=== PATIENT | female | born 1945 | race Caucasian/White ===

== ENCOUNTER 2017-11-22 12:37 | Emergency (ER) | payer MEDICARE ==
[2017-11-22] MEDS ORDERED: Diazepam TAB(*) 2 MG PO ONE (14:17)
[2017-11-22 14:30] LABS: Urine Appearance Clear; Urine Blood Negative (Negative); Urine Color Straw; Urine Ketones Negative (Negative); Urine Protein Negative (Negative); Urine Specific Gravity 1.004 (1.010-1.030); Urine Urobilinogen Negative (Negative)
--- NOTE | 2017-11-22 14:57 | RAD ---
HISTORY: Dizziness COMPARISONS: March 10, 2015 TECHNIQUE: Multiple contiguous axial CT scans were obtained of the head without intravenous contrast. FINDINGS: HEMORRHAGE/INFARCT: There is no hemorrhage or acute infarct. MASSES/SHIFT: There is no mass or shift. EXTRA-AXIAL SPACES: There are no extra-axial fluid collections. SULCI AND VENTRICLES: The sulci and ventricles are normal in size and position for the patient's stated age. CEREBRUM: There are no focal parenchymal abnormalities. BRAINSTEM: There are no focal parenchymal abnormalities. CEREBELLUM: There are no focal parenchymal abnormalities. VESSELS: Aneurysm clips are noted at the level of the supraclinoid internal carotid arteries bilaterally. PARANASAL SINUSES: The paranasal sinuses are clear. ORBITS: The orbits are unremarkable. BONES AND SOFT TISSUE: There is post surgical change to the skull. OTHER: None IMPRESSION: NO ACUTE INTRACRANIAL PATHOLOGY. POST SURGICAL CHANGE.
--- NOTE | 2017-11-22 15:00 | RAD ---
HISTORY: Dizziness COMPARISONS: November 28, 2015 VIEWS: 1: frontal portable view of the chest at 2:33 PM FINDINGS: LINES AND TUBES: None. CARDIOMEDIASTINAL SILHOUETTE: The cardiomediastinal silhouette is normal for portable technique. PLEURA: The costophrenic angles are sharp. No pleural abnormalities are noted. LUNG PARENCHYMA: The lungs are clear. ABDOMEN: The upper abdomen is clear. There is no subphrenic gas. BONES AND SOFT TISSUES: The patient is status post anterior cervical fusion. IMPRESSION: NO ACTIVE CARDIOPULMONARY DISEASE.
[2017-11-22 15:18] LABS: ABS Basophils 0 10^3/ul (0-0.2); ABS Eosinophils 0.1 10^3/ul (0-0.6); ABS Lymphocytes 1.3 10^3/ul (1.0-4.8); ABS Monocytes 0.4 10^3/ul (0-0.8); ABS Neutrophils 4.1 10^3/ul (1.5-7.7); ABS Nucleated RBC 0 10^3/ul; Hematocrit 41 % (35-47); Hemoglobin 13.6 g/dl (12.0-16.0); Lymphocyte % 21.6 % (25-47); Mean Corpuscular HGB Conc 33 g/dl (31-36); Mean Corpuscular Hemoglobin 29 pg (27-31); Mean Corpuscular Volume 87 fL (80-97); Mean Platelet Volume 9 um3 (7.4-10.4); Nucleated Red Blood Cells % 0; Platelet Count 231 10^3/ul (150-450); Red Blood Count 4.74 10^6/ul (4.0-5.4); Red Cell Distribution Width 14 % (10.5-15); White Blood Count 5.9 10^3/ul (3.5-10.8)
[2017-11-22 15:35] LABS: EGFR Non-African American 96.4 (>60)
[2017-11-22] MEDS ORDERED: Diazepam TAB(*) 5 MG PO ONE (15:46)
[2017-11-22 15:47] LABS: INR 0.97 (0.77-1.02)
[2017-11-22] MEDS ORDERED: Diazepam TAB(*) 5 MG ONE (15:48)
[2017-11-22 16:59] VITALS: BP 130/72
--- NOTE | 2017-11-22 20:56 | ED ---
Fernando Gill Thomas, scribed for Joaquín Tamez on 11/22/17 at 1413 . Dizziness - HPI Summary HPI Summary: The patient is a 71 year old female presenting to the emergency department complaining of dizziness for the last three days. The dizziness is aggravated by head movement. She has been taking meclizine to no relief of her dizziness. She vomited eight times last night. She is nauseous in the emergency department. The patient additionally complains of chronic feelings of congestion in her ear and neck pain. The patient denies chest pain, shortness of breath, loss of consciousness, and abdominal pain. - History Of Current Complaint Chief Complaint: EDDizziness Stated Complaint: N/D/V Time Seen by Provider: 11/22/17 13:56 Hx Obtained From: Patient Onset/Duration: Still Present Timing: Days - 3 Severity Currently: Moderate Aggravating Factor(s): Change In Head Position Alleviating Factor(s): Nothing Associated Signs And Symptoms: Positive: Other: - Dizziness, nausea, vomiting, ear congestion, neck pain; NEGATIVE: chest pain, SOB, abdominal pain, loss of conscioussness. Negative: Fever - Allergies/Home Medications Allergies/Adverse Reactions: Allergies Allergy/AdvReac Type Severity Reaction Status Date / Time Sulfa Drugs Allergy Intermediate Vomiting Verified 10/29/17 13:11 Amoxicillin Allergy Mild Nausea And Verified 10/29/17 13:11 Vomiting Codeine Allergy Mild See Comment Verified 10/29/17 13:11 Home Medications: Home Medications Budesonide CAP(NF) 3 mg PO DAILY 11/22/17 [History Confirmed 11/22/17] Cyclobenzaprine TAB* [Flexeril 10 MG TAB*] 5 - 10 mg PO TID PRN 11/22/17 [ History Confirmed 11/22/17] Desvenlafaxine (NF) [Pristiq (NF)] 50 mg PO DAILY 11/22/17 [History Confirmed ] Lansoprazole CAP (NF) [Prevacid CAP (NF)] 30 mg PO BEDTIME PRN 11/22/17 [ History Confirmed 11/22/17] Meclizine TAB* [Antivert 12.5 TAB*] 50 mg PO BEDTIME PRN 11/22/17 [History Confirmed 11/22/17] Pantoprazole TAB (NF) [Protonix TAB (NF)] 40 mg PO DAILY 11/22/17 [History Confirmed 11/22/17] Prochlorperazine TAB* [Compazine Tab*] 10 mg PO Q6H PRN 11/22/17 [History Confirmed 11/22/17] Rizatriptan ODT (NF) [Maxalt-PRINTED CIRCUIT BOARDS PLASMA ETCHER (NF)] 10 mg PO ONCE PRN 11/22/17 [History Confirmed 11/22/17] SUMAtriptan TAB* [Imitrex TAB*] 50 - 100 mg PO ONCE PRN 11/22/17 [History Confirmed 11/22/17] PMH/Surg Hx/FS Hx/Imm Hx Previously Healthy: No Endocrine/Hematology History: Reports: Hx Systemic Lupus Erythematosus Denies: Hx Bone Marrow Disease, Hx Diabetes, Hx Sickle Cell Disease, Hx Thyroid Disease - RECENTLY DIAGNOSED BENIGN TUMOR, Hx Anemia Cardiovascular History: Reports: Hx Hypercholesterolemia Denies: Hx Angina, Hx Congestive Heart Failure, Hx Coronary Artery Disease, Hx Hypertension, Hx Myocardial Infarction, Hx Pacemaker/ICD, Hx Peripheral Vascular Disease, Hx Rheumatic Fever, Hx Valvular Heart Disease, Other Cardiovascular Problems/Disorders Respiratory History: Denies: Hx Asthma, Hx Chronic Obstructive Pulmonary Disease (COPD), Hx Pulmonary Edema, Hx Pulmonary Embolism, Hx Sleep Apnea, Other Respiratory Problems/Disorders GI History: Reports: 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, LIVER PANELS NOW NORMAL, Hx Gastroesophageal Reflux Disease, Hx Irritable Bowel, Hx Ulcer Denies: Hx Crohn's Disease, Hx Hiatal Hernia, Hx Jaundice, Other GI Disorders History: Denies: Hx Dialysis, Hx Kidney Infection, Hx Kidney Stones, Hx Renal Disease , Other Problems/Disorders Musculoskeletal History: Reports: Hx Arthritis, Hx Rheumatoid Arthritis, Hx Bursitis - HX OF IN SHOULDERS Denies: Hx Osteoporosis, Hx Scoliosis, Hx Tendonitis, Other Musculoskeletal History Sensory History: Reports: Hx Cataracts Denies: Hx Contacts or Glasses, Hx Glaucoma, Hx Hearing Aid Opthamlomology History: Reports: Hx Cataracts Denies: Hx Contacts or Glasses, Hx Glaucoma Neurological History: Reports: Hx Headaches, Hx Migraine, Other Neuro Impairments/Disorders - PAIN CLINIC PT. Denies: Hx Nerve Disease, Hx Seizures Psychiatric History: Reports: Hx Depression Denies: Hx Anxiety, Hx Panic Disorder - Cancer History Hx Chemotherapy: No Hx Radiation Therapy: No - Surgical History Surgery Procedure, Year, and Place: Lumbar fusion done 05/22/16 at [facility] [place] with Dr. De La Rosa. Bilateral Shoulder Surgery at [facility] [place] with Dr. Harmon. Hx Anesthesia Reactions: No Infectious Disease History: No Infectious Disease History: Reports: Hx Hepatitis - LUPOID, History Other Infectious Disease - AFTER ANEURYSM SURGERY, UNSURE OF TYPE Denies: Traveled Outside the [place] in Last 30 Days - Family History Known Family History: Positive: Other - Patient denies relevant FHx - Social History Alcohol Use: None Substance Use Type: Reports: None Substance Use Comment - Amount & Last Used: Medical Marijuana Smoking Status (MU): Former Smoker Type: Cigarettes Amount Used/How Often: 1 -2 PPD X 54 YEARS Have You Smoked in the Last Year: No Review of Systems Negative: Fever Positive: Other - Ear congestion Negative: Chest Pain Negative: Shortness Of Breath Positive: Vomiting, Nausea. Negative: Abdominal Pain Positive: Other - Neck pain Neurological: Other - Dizziness; NEGATIVE: loss of consciousness All Other Systems Reviewed And Are Negative: Yes Physical Exam - Summary Physical Exam Summary: Appearance: Well appearing, no pain distress Skin: warm, dry, reflects adequate perfusion Head/face: normal Eyes: EOMI, ITZEL ENT: There are dull TMs bilaterally. Neck: supple, non-tender Respiratory: CTA, breath sounds present Cardiovascular: RRR, pulses symmetrical Abdomen: non-tender, soft Bowel: present Musculoskeletal: normal, strength/ROM intact Neuro: normal, sensory motor intact, A&Ox3 Triage Information Reviewed: Yes Vital Signs On Initial Exam: Initial Vitals Temp Pulse Resp BP Pulse Ox 98.2 F 100 16 132/85 100 11/22/17 12:41 11/22/17 12:41 11/22/17 12:41 11/22/17 12:41 11/22/17 12:41 Vital Signs Reviewed: Yes Diagnostics - Vital Signs Vital Signs Temp Pulse Resp BP Pulse Ox 11/22/17 12:41 98.2 F 100 16 132/85 100 - Laboratory Lab Results: Lab Results 11/22/17 11/22/17 11/22/17 Range/Units 14:17 15:05 15:05 WBC 5.9 (3.5-10.8) 10^3/ul RBC 4.74 (4.0-5.4) 10^6/ul Hgb 13.6 (12.0-16.0) g/dl Hct 41 (35-47) % MCV 87 (80-97) fL MCH 29 (27-31) pg MCHC 33 (31-36) g/dl RDW 14 (10.5-15) % Plt Count 231 (150-450) 10^3/ul MPV 9 (7.4-10.4) um3 Neut % (Auto) 69.3 (38-83) % Lymph % (Auto) 21.6 L (25-47) % [place] % (Auto) 7.4 (1-9) % Eos % (Auto) 1.0 (0-6) % Baso % (Auto) 0.7 (0-2) % Absolute Neuts (auto) 4.1 (1.5-7.7) 10^3/ul Absolute Lymphs (auto) 1.3 (1.0-4.8) 10^3/ul Absolute Monos (auto) 0.4 (0-0.8) 10^3/ul Absolute Eos (auto) 0.1 (0-0.6) 10^3/ul Absolute Basos (auto) 0 (0-0.2) 10^3/ul Absolute Nucleated RBC 0 10^3/ul Nucleated RBC % 0 INR (Anticoag Therapy) 0.97 (0.77-1.02) APTT 32.5 (26.0-36.3) seconds Sodium (133-145) mmol/L Potassium (3.5-5.0) mmol/L Chloride (101-111) mmol/L Carbon Dioxide (22-32) mmol/L Anion Gap (2-11) mmol/L BUN (6-24) mg/dL Creatinine (0.51-0.95) mg/dL Est GFR ( Amer) (>60) Est GFR (Non-Af Amer) (>60) BUN/Creatinine Ratio (8-20) Glucose (70-100) mg/dL Calcium (8.6-10.3) mg/dL Magnesium (1.9-2.7) mg/dL Total Bilirubin (0.2-1.0) mg/dL AST (13-39) U/L ALT (7-52) U/L Alkaline Phosphatase (34-104) U/L Troponin I (<0.04) ng/mL Total Protein (6.4-8.9) g/dL Albumin (3.2-5.2) g/dL Globulin (2-4) g/dL Albumin/Globulin Ratio (1-3) Urine Color Straw Urine Appearance Clear Urine pH 7.0 (5-9) Ur Specific [place] 1.004 L (1.010-1.030) Urine Protein Negative (Negative) Urine Ketones Negative (Negative) Urine Blood Negative (Negative) Urine Nitrate Negative (Negative) Urine Bilirubin Negative (Negative) Urine Urobilinogen Negative (Negative) Ur Leukocyte Esterase Negative (Negative) Urine Glucose Negative (Negative) 11/22/17 Range/Units 15:05 WBC (3.5-10.8) 10^3/ul RBC (4.0-5.4) 10^6/ul Hgb (12.0-16.0) g/dl Hct (35-47) % MCV (80-97) fL MCH (27-31) pg MCHC (31-36) g/dl RDW (10.5-15) % Plt Count (150-450) 10^3/ul MPV (7.4-10.4) um3 Neut % (Auto) (38-83) % Lymph % (Auto) (25-47) % [place] % (Auto) (1-9) % Eos % (Auto) (0-6) % Baso % (Auto) (0-2) % Absolute Neuts (auto) (1.5-7.7) 10^3/ul Absolute Lymphs (auto) (1.0-4.8) 10^3/ul Absolute Monos (auto) (0-0.8) 10^3/ul Absolute Eos (auto) (0-0.6) 10^3/ul Absolute Basos (auto) (0-0.2) 10^3/ul Absolute Nucleated RBC 10^3/ul Nucleated RBC % INR (Anticoag Therapy) (0.77-1.02) APTT (26.0-36.3) seconds Sodium 137 (133-145) mmol/L Potassium 3.6 (3.5-5.0) mmol/L Chloride 105 (101-111) mmol/L Carbon Dioxide 26 (22-32) mmol/L Anion Gap 6 (2-11) mmol/L BUN 13 (6-24) mg/dL Creatinine 0.61 (0.51-0.95) mg/dL Est GFR ( Amer) 124.0 (>60) Est GFR (Non-Af Amer) 96.4 (>60) BUN/Creatinine Ratio 21.3 H (8-20) Glucose 113 H (70-100) mg/dL Calcium 9.2 (8.6-10.3) mg/dL Magnesium 1.8 L (1.9-2.7) mg/dL Total Bilirubin 0.40 (0.2-1.0) mg/dL AST 16 (13-39) U/L ALT 17 (7-52) U/L Alkaline Phosphatase 60 (34-104) U/L Troponin I 0.00 (<0.04) ng/mL Total Protein 6.3 L (6.4-8.9) g/dL Albumin 3.9 (3.2-5.2) g/dL Globulin 2.4 (2-4) g/dL Albumin/Globulin Ratio 1.6 (1-3) Urine Color Urine Appearance Urine pH (5-9) Ur Specific [place] (1.010-1.030) Urine Protein (Negative) Urine Ketones (Negative) Urine Blood (Negative) Urine Nitrate (Negative) Urine Bilirubin (Negative) Urine Urobilinogen (Negative) Ur Leukocyte Esterase (Negative) Urine Glucose (Negative) Result Diagrams: 11/22/17 15:05 11/22/17 15:05 Lab Statement: Any lab studies that have been ordered have been reviewed, and results considered in the medical decision making process. - Radiology CXR Xray Interpretation: No Acute Changes - NO ACTIVE CARDIOPULMONARY DISEASE. Dr. Tamez has reviewed this report. Radiology Interpretation Completed By: Radiologist - CT Brain CT Interpretation: No Acute Changes - NO ACUTE INTRACRANIAL PATHOLOGY. POST SURGICAL CHANGE. Dr. Tamez has reviewed this report. CT Interpretation Completed By: Radiologist - EKG 12:46 Cardiac Rate: NL EKG Rhythm: Sinus Rhythm - 91 BPM EKG Interpretation: No acute changes Dizzy Course/Dx - Course Assessment/Plan: The patient is a 71 year old female presenting to the emergency department complaining of dizziness for the last three days. In the ED course the patient was given Diazepam. Bloodwork and urinalysis were obtained. EKG is sinus rhythm with no acute changes. CT Brain and CXR were obtained. The patient is diagnosed with dizziness, vertigo, and nausea. The patient is instructed to follow up with [facility]. The patient is prescribed Zofran. - Diagnoses Differential Diagnosis/HQI/PQRI: Anxiety, Benign Paroxysmal Positional Vertigo, CVA, Dysrhythmia, Labyrinthitis, Meniere's Disease, Transient Ischemic Attack, Vasovagal Reaction Provider Diagnoses: Dizziness, Vertigo, Nausea Discharge - Discharge Plan Condition: Stable Disposition: HOME Prescriptions: Ondansetron ODT TAB* [Zofran 4 MG Odt TAB*] 4 mg PO Q8H PRN #21 tab.odt MDD 3 PRN Reason: Nausea Patient Education Materials: Vertigo (ED), Acute Nausea and Vomiting (ED), Dizziness (ED) Referrals: Theron Sesay MD [Medical Doctor] - 3 Days Additional Instructions: Follow up with Dr. Sesay, ENT, in three days. Return to the emergency department for any new or worsening symptoms. The documentation as recorded by the Fernando roberts Thomas accurately reflects the service I personally performed and the decisions made by Dashawn bob Emmanuel.
== END 2017-11-22 17:01 | disposition home or self-care (01) ==
LOC: ED 12:37
DX: R42 Dizziness and giddiness (principal); R11.2 Nausea with vomiting, unspecified; M54.2 Cervicalgia; Z87.891 Personal history of nicotine dependence
CPT/HCPCS: 36415; 70450; 71045; 80053; 81003; 83735; 84484; 85025; 85610; 85730; 93005; 99282; A9270-GY

== ENCOUNTER 2019-11-12 05:25 | Inpatient (IN) | payer MEDICARE ==
[~2019-11-12 05:25] MED LIST: Buffered Lidocaine 1% SYRIN* 1 ML/SYRINGE INTRADERM ONE; NS 0.9% IVPB SCH; VANCOMYCIN IVPB SCH
--- OUTSIDE RECORDS SUMMARY | 2019-11-12 05:28 | XMS REPORT | Continuity of Care Document ---
:1945 External Reference #:[id number] Author Name Padmini Gomez Problems Active Problems Provider Date Neck pain Ted De La Rosa M.D. Onset: 11/18/2014 Localized, primary osteoarthritis of the Dangelo Harmon M.D. Onset: 05/12/2015 shoulder region Hypertrophic osteoarthropathy Dangelo Harmon M.D. Onset: 08/16/2015 Spinal stenosis of lumbar region Ted De La Rosa M.D. Onset: 11/09/2015 Arthralgia of the pelvic region and thigh Ted De La Rosa M.D. Onset: 2015 Convalescence after surgery Ted De La Rosa M.D. Onset: 12/14/2015 Acquired spondylolisthesis Ted De La Rosa M.D. Onset: 05/09/2016 Cervical spondylosis Kirstie Palma MD Onset: 12/10/2017 Spinal stenosis in cervical region Kirstie Palma MD Onset: 12/10/2017 Lumbosacral spondylosis without myelopathy Kirstie Palma MD Onset: Low back pain Kirstie Palma MD Onset: 01/13/2018 Social History Type Date Description Comments Sex Unknown Tobacco Use Start: Unknown End: Former Cigarette Smoker quit smoking in Unknown 2008 Smoking Status Reviewed: 10/24/19 Former Cigarette Smoker quit smoking in 2008 ETOH Use Denies alcohol use Tobacco Use Start: Unknown End: Patient is a former quit age 63 Unknown smoker Recreational Drug Use Denies Drug Use Exercise Type/Frequency Does not exercise Allergies, Adverse Reactions, Alerts Active Allergies Reaction Severity Comments Date Sulfa Antibiotics 01/20/2014 Codeine 01/22/2014 Amoxicillin 01/22/2014 Medications Active Medications SIG Qnty Indications Ordering Date Provider MJ Collar At all times M47.26 Vassilios 09/09/2019 after surgery Dimopoulos, MD Meclizine HCL 1 by mouth 90tabs Linda Wang, 25mg Tablets daily as needed Bupropion HCL SR 1 by mouth Linda Wang, 150mg twice a day MD Tablets ER 12HR Premarin 1 tab orally 6 Linda Wang, 1.25mg Tablets days per week Chlorzoxazone 1 1/2 tabs by 45tabs Linda Wang, 500mg Tablets mouth three MD times a day spasm Trazodone HCL 2-4 tablets by 30tabs Linda Wang, 100mg Tablets mouth every MD night at bedtime Imitrex 1/2-1 tablet 12tabs Linda Wang, 100mg Tablets every 2 hours MD as needed mdd 2 Flexeril 1/2-1tablet by 60tabs Linda Wang, 10mg Tablets mouth three MD times a day as needed 1 by mouth 90tabs Linda Wang, 16.2mg Tablets three times a MD day as needed Prochlorperazine Maleate one tab by Linda Wang, 10mg mouth every 6 MD Tablets hours as needed Multivitamins 1 capsule daily 30caps Linda Wang, Capsules Digestive Enzymes 1 by mouth Linda Wang, Capsules before meals Vitamin C 1 by mouth Linda Wang, 1000mg Tablets every day Fioricet 1-2 tabs by 30caps Linda Wang, 50-300-40mg Capsules mouth q4-6hr as MD needed Pantoprazole Sodium 1 by mouth Unknown 20mg every day Tablets DR Odellstenrico 1 tab by mouth Unknown 100mg Tablets ER 24HR in the morning Medications Administered in Office Medication SIG Qnty Indications Ordering Provider Date Triamcinolone (Kenalog) Victorina Lua MD 12/30/2015 Injection Depomedrol 80MG Dangelo Harmon M.D. 05/12/2015 Injection Immunizations Description No Information Available Vital Signs Date Vital Result Comment 10/24/2019 1:23pm Height 61 inches 5'1" Weight 105.00 lb Heart Rate 80 /min BP Systolic Sitting 140 mmHg BP Diastolic Sitting 86 mmHg BMI (Body Mass Index) 19.8 kg/m2 09/09/2019 1:14pm Height 61 inches 5'1" Weight 110.00 lb Heart Rate 80 /min BP Systolic Sitting 112 mmHg BP Diastolic Sitting 82 mmHg Pain Level 9 Shoulders and lower back BMI (Body Mass Index) 20.8 kg/m2 Results Test Acquired Date Facility Test Result H/L Range Note Urinalysis Profile 10/21/2019 [facility] Urine Color Yellow [address] [place] [address] [phone] Urine Appearance Cloudy Urine Specific [place] 1.027 Normal 1.010-1.030 Urine pH 5.0 Normal 5-9 Urine Urobilinogen Negative Negative Urine Ketones Negative Negative Urine Protein Negative Negative Urine Leukocytes Negative Negative Urine Blood Negative Negative Urine Nitrite Negative Negative Urine Bilirubin Negative Negative Urine Glucose Negative Negative CBC Auto 10/21/2019 [facility] White Blood 9.4 10^3/uL Normal 3.5-10.[address] [place] [address] [phone] Red Blood Count 4.60 10^6/uL Normal 3.70-4.87 Hemoglobin 13.5 g/dL Normal 12.0-16.0 Hematocrit 40 % Normal 35-47 Mean Corpuscular Volume 88 fL Normal 80-97 Mean Corpuscular Hemoglobin 30 pg Normal 27-31 Mean Corpuscular HGB Conc 34 g/dL Normal 31-36 Red Cell Distribution Width 14 % Normal 10-15 Platelet Count 291 10^3/uL Normal 150-450 Mean Platelet Volume 9.3 fL Normal 7.4-10.4 Abs Neutrophils 6.5 10^3/uL Normal 1.5-7.7 Abs Lymphocytes 2.0 10^3/uL Normal 1.0-4.8 Abs Monocytes 0.7 10^3/uL Normal 0-0.8 Abs Eosinophils 0.1 10^3/uL Normal 0-0.6 Abs Basophils 0.0 10^3/uL Normal 0-0.2 Abs Nucleated RBC 0.0 10^3/uL Granulocyte % 69.6 % Lymphocyte % 21.8 % Monocyte % 7.2 % Eosinophil % 1.0 % Basophil % 0.4 % Nucleated Red Blood Cells % 0.0 Inr/Protime 10/21/2019 [facility] Inr 1.03 Normal 0.82-1.[address] [place] [address] [phone] Laboratory test 10/21/2019 [facility] Partial 33.8 Normal 26.0 -38.[address] [place] [address] Time PTT [phone] Basic Metabolic 10/21/2019 [facility] Sodium 136 mmol/L Normal 135-[address] [place] [address] [phone] Potassium 3.8 mmol/L Normal 3.5-5.0 Chloride 104 mmol/L Normal 101-111 Co2 Carbon Dioxide 21 mmol/L Low 22-32 Anion Gap 11 mmol/L Normal 2-11 Glucose 102 mg/dL High 70-100 Blood Urea Nitrogen 22 mg/dL Normal 6-24 Creatinine 0.92 mg/dL Normal 0.51-0.95 BUN/Creatinine Ratio 23.9 High 8-20 Calcium 9.1 mg/dL Normal 8.6-10.3 Egfr Non- 59.7 >60 Egfr 72.2 >60 2 Type & Screen 10/21/2019 [facility] Patient Blood Type A Positive [address] [place] [address] [phone] Antibody Screen NEGATIVE 1 Standard intensity warfarin therapeutic range: 2.0-3.0 High intensity warfarin therapeutic range: 2.5-3.5 2 Because ethnic data is not always readily available, this report includes an eGFR for both -Americans and non- Americans. The National Kidney Disease Education Program (NKDEP) does not endorse the use of the MDRD equation for patients that are not between the ages of 18 and 70, are , have extremes of body size, muscle mass, or nutritional status, or are non- or non-. According to the National Kidney Foundation, irrespective of diagnosis, the stage of the disease is based on the level of kidney function: Stage Description GFR(mL/min/1.73 m(2)) 1 Kidney damage with normal or decreased GFR 90 2 Kidney damage with mild decrease in GFR 60-89 3 Moderate decrease in GFR 30-59 4 Severe decrease in GFR 15-29 5 Kidney failure <15 (or dialysis) Procedures Description No Information Available Medical Devices Description No Information Available Encounters Type Date Location Provider Dx Diagnosis [facility] MD cervical region M47.12 Other spondylosis with myelopathy, cervical region M54.12 Radiculopathy, cervical region 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, cervicothoracic region Assessments Date Code Description Provider 10/24/2019 M48.02 Spinal stenosis, cervical region Kirstie Palma MD 10/24/2019 M47.12 Other spondylosis with myelopathy, Kirstie Palma MD cervical region 10/24/2019 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, cervicothoracic Kirstie Palma MD region 09/18/2019 M48.02 Spinal stenosis, cervical region Kirstie Palma MD 09/18/2019 M47.12 Other spondylosis with myelopathy, Kirstie Palma MD cervical region 09/18/2019 M54.12 Radiculopathy, cervical region Kirstie Palma MD 09/18/2019 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, cervicothoracic Kirstie Palma MD region 09/09/2019 M48.02 Spinal stenosis, cervical region Kirstie Palma MD 09/09/2019 M47.12 Other spondylosis with myelopathy, Kirstie Palma MD cervical region 09/09/2019 M54.12 Radiculopathy, cervical region Kirstie Palma MD 09/09/2019 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, cervicothoracic Kirstie Palma MD region Plan of Treatment Future Appointment(s):12/14/2019 2:00 pm - Kirstie Palma MD at [facility]11/20/2019 11:30 am - Kirstie Palma MD at [facility]11/12/2019 7:30 am - Kirstie Palma MD at [facility]10/24/2019 - Kirstie Palma MDM48.02 Spinal stenosis, cervical ropojiR27.12 Other spondylosis with myelopathy, cervical regionFollow up:RV one week, one month, three months post op.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
[2019-11-12] MEDS ORDERED: Lactated Ringers 1000 ML Bag* 1,000 ML IV SCH ×2 (06:00→19:00)
[2019-11-12] MEDS ORDERED: Dexamethasone IV* 4 MG/ML 1 ML (4 MG) IV SLOW PU ONE (06:00)
[2019-11-12] MEDS ORDERED: Dexamethasone IV* 4 MG/ML 1 ML (4 MG) ONE ×3 (06:44→16:21)
[2019-11-12] MEDS ORDERED: Buffered Lidocaine 1% SYRIN* 1 ML/SYRINGE INTRADERM ONE (06:44)
[2019-11-12] MEDS ORDERED: Bupivacaine 0.25% EPI 200,000* 30 ML SDV ONE (06:57)
[2019-11-12] MEDS ORDERED: Bacitracin INJECTION* 50,000 UNITS ONE ×3 (06:57→15:39)
[2019-11-12] MEDS ORDERED: Rocuronium* 10 MG/ML VIAL ONE (07:17)
[2019-11-12] MEDS ORDERED: Remifentanil* 2 MG VIAL ONE ×4 (07:17→13:01)
[2019-11-12] MEDS ORDERED: Propofol* 10 MG/ML 20 ML BTL ONE ×3 (07:17→14:20)
[2019-11-12] MEDS ORDERED: Midazolam* 1 MG/ML 5 ML VIAL (5 MG) ONE (07:43)
[2019-11-12] MEDS ORDERED: Phenylephrine 10 MG/ML VIAL* 1 ML VIAL ONE ×4 (08:01→13:05)
[2019-11-12] MEDS ORDERED: Propofol* 500 MG/50 ML BTL ONE (08:58)
[2019-11-12] MEDS ORDERED: Ondansetron INJ* 2 MG/ML VIAL ONE ×2 (14:38→16:21)
[2019-11-12] MEDS ORDERED: HYDROmorphone INJ1* 1 MG/ML SYRINGE ONE ×5 (15:51→19:14)
[2019-11-12] MEDS ORDERED: Naloxone* 0.4 MG/ML 1 ML VIAL IV PRN (16:19)
[2019-11-12] MEDS ORDERED: DiMENhydriNATE IV* 50 MG/ML VIAL IV PUSH PRN (16:19)
[2019-11-12] MEDS ORDERED: Metoclopramide IV* 5 MG/ML 2 ML VIAL ONE (16:21)
[2019-11-12] MEDS ORDERED: Ketorolac INJ* 30 MG/ML 1 ML VIAL ONE (16:21)
[2019-11-12] MEDS ORDERED: Acetaminophen IV 1GM/100ML * 100 ML ONE (16:21)
[2019-11-12] MEDS: HYDROmorphone INJ1* 1 MG/ML SYRINGE IV PRN ×3 (17:58→20:46)
[2019-11-12] MEDS ORDERED: oxyCODONE TAB* 5 MG TAB ONE ×2 (18:02→18:27)
[2019-11-12] MEDS ORDERED: DiMENhydriNATE IV* 50 MG/ML VIAL ONE (18:02)
[2019-11-12] MEDS: oxyCODONE TAB* 5 MG TAB PO PRN ×2 (18:10→18:31)
[2019-11-12] MEDS ORDERED: Acetaminophen TAB* 325 MG PO PRN (18:24)
[2019-11-12] MEDS ORDERED: Magnesium Hydroxide LIQ* 30 ML UDC PO PRN (18:24)
[2019-11-12] MEDS ORDERED: Ondansetron INJ* 2 MG/ML VIAL IV PRN (18:24)
[2019-11-12] MEDS ORDERED: HYDROcodone/ACETAMIN 5-325 MG* 1 TAB PO PRN ×2 (18:24)
[2019-11-12] MEDS ORDERED: SUMAtriptan TAB* 50 MG PO PRN (19:09)
[2019-11-12] MEDS ORDERED: Cyclobenzaprine TAB* 10 MG PO PRN (19:09)
[2019-11-12] MEDS ORDERED: Scopolamine 1.5 mg* PATCH ONE (19:15)
[2019-11-12] MEDS ORDERED: tiZANidine TAB* 2 MG PO ONE (19:16)
[2019-11-12] MEDS ORDERED: Gabapentin CAP(*) 300 MG PO ONE (19:17)
[2019-11-12] MEDS ORDERED: Gabapentin CAP(*) 300 MG ONE (19:22)
[2019-11-12] MEDS ORDERED: Dicyclomine CAP* 10 MG PO PRN (19:24)
--- NOTE | 2019-11-12 20:53 | CONS ---
CC: Dr. Linda Manriquez; Dr. Kirstie Palma * CONSULTATION REPORT: DATE OF CONSULT: 11/12/19 PRIMARY CARE PROVIDER: Dr. Linda Manriquez. ATTENDING PHYSICIAN: Brooke Wilkes MD (dictated by KORIN Bergman). REQUESTING PHYSICIAN IN CONSULTATION: Dr. Kirstie Palma. REASON FOR CONSULT: Co-medical management. HISTORY OF PRESENT ILLNESS: Ms. Gonsalez is a 73-year-old female with a past medical history of migraine, chronic pain, and cervical degenerative disk disease, who presented to [facility] today for an elective C2-T3 fusion. Currently, she complains of pain at 9/10 in the posterior neck. She also complains of bilateral shoulder/upper arm pain. She has difficulty answering questions due to her discomfort, but her review of systems is benign other than neck and shoulder/upper arm pain. The patient has a history of chronic pain and follows with Dr. Oakes for this. She is seen postoperatively in the PACU and complains of 9/10 pain. PAST MEDICAL HISTORY: 1. Migraine. 2. Irritable bowel syndrome. 3. GERD. 4. Chronic pain. 5. Depression. 6. History of SLE. PAST SURGICAL HISTORY: 1. Cervical and lumbar spine fusion. 2. x2. 3. Partial gastrectomy. 4. Craniotomy with aneurysm clipping x2. HOME MEDICATIONS: 1. Ascorbic acid 1000 mg p.o. daily. 2. Bentyl 1 cap p.o. q.i.d. p.r.n. 3. Budesonide 9 mg p.o. b.i.d. 4. Bupropion tab 150 mg p.o. b.i.d. 5. Fioricet 2 tabs p.o. q.3 hours p.r.n. 6. Chlorzoxazone 750 mg p.o. t.i.d. 7. Cyclobenzaprine 5 to 10 mg p.o. t.i.d. p.r.n. 8. Desvenlafaxine 150 mg p.o. daily. 9. Ergocalciferol 50 mcg twice a month. 10. Premarin 1.25 mg p.o. b.i.d. 11. Meclizine 50 mg p.o. at bedtime p.r.n. 12. Melatonin 20 mg p.o. at bedtime. 13. Multivitamin 1 tab p.o. daily. 14. Pantoprazole 40 mg p.o. daily at bedtime. 15. 1 tab p.o. daily p.r.n. 16. Prochlorperazine 10 mg p.o. q.6 hours p.r.n. 17. Rizatriptan 10 mg p.o. daily. 18. Sumatriptan 50 to 100 mg p.o. once p.r.n. 19. Trazodone 200 to 400 mg p.o. at bedtime. ALLERGIES: AMOXICILLIN, CODEINE, SULFA FAMILY HISTORY: The patient is unable to give family history, therefore this was obtained from chart. Mother at the age of 83 from uterine cancer, father at the age of 89 from Alzheimer disease. Brother has prostate cancer. Family history of CVA and diabetes. SOCIAL HISTORY: The patient denies current use of tobacco. She quit approximately 10 years ago. Prior to that, she smoked for 40 years 1 pack per day. She does not use alcohol. She is retired. She lives home alone. She has 2 children. In the event that she is unable to make her own medical decision, she has appointed her ex- Reese Gonsalez to be her surrogate decision maker. REVIEW OF SYSTEMS: A 14-point review of systems has been performed and all the pertinent positives and negative are in the HPI, other systems are negative. PHYSICAL EXAM: General: Ms. Gonsalez is a well-developed, well-nourished, thin , older white woman who is sitting up in her bed in the PACU. She appears to be in a fair amount of pain. She attempts to answer questions but is interrupted by pain relatively frequently. HEENT: PERRL. EOMI. Nonicteric sclerae. The patient has facial edema, most prominent periorbitally. Hearing is grossly intact. Oral mucous membranes are moist. There are no lesions. The pharynx is clear. The tongue is at midline. Neck: The patient has a Kane collar in place. There is clean, dry, intact dressing to the posterior neck. There is a DALY drain in place with thin blood tinged serosanguineous fluid in the bulb. Cardiovascular: Tachycardic with S1, S2 present without murmurs, rubs, clicks, or gallops. There is no JVD or peripheral edema. Pulmonary: Symmetrical chest expansion without use of accessory muscles. Clear to auscultation bilaterally anteriorly without rhonchi, wheezes, or rales. Abdomen: Bowel sounds in all quadrants, soft, nontender to palpation. Musculoskeletal: Full range of motion without pain or deformities of her movement. Neuro: The patient is awake. She is alert and oriented x3. Cranial nerves II through XII appear to be grossly intact. ASSESSMENT AND PLAN: Ms. Gonsalez is a 73-year-old female with past medical history of migraine, chronic pain, who presented to [facility] today for an elective C2 to T3 fusion and will be admitted for: 1. C2-T3 fusion. Management per Neurosurgery. Pain management per Neurosurgery. The patient will have repeat cervical spine x-ray in the morning. Continue Kane collar and DALY drain. TEDs and SCDs for DVT management. 2. Irritable bowel syndrome. The patient may continue her Bentyl. 3. Depression. Continue bupropion and Pristiq. 4. Chronic pain. We will continue cyclobenzaprine. Further pain management per Neurosurgery. If pain management becomes a concern, the patient may need consults with Pain Management, with whom she follows outpatient. 5. History of migraines. Sumatriptan as needed p.r.n. headache. 6. Code status: DNR/DNI. 7. DVT prophylaxis: Per Neurosurgery. TEDs and SCDs. TIME SPENT: Approximately 35 minutes were spent on this consultation, greater than half that time was spent [id number] with the patient. This case was discussed with my attending Dr. Wilkes who is in agreement with the plan of care. KORIN WILEY [id number]/[facility] #: [id number] INDU
[2019-11-12] MEDS ORDERED: Morphine PCA 5 MG/ML * Titrate per Protocol PCA SCH (21:00)
[2019-11-12] MEDS ORDERED: Budesonide CAP(NF) 3 MG PO SCH (21:00)
[2019-11-12] MEDS: buPROPion SR TAB.SR* 150 MG PO SCH (23:17)
[2019-11-12] MEDS: traZODone TAB* 100 MG PO SCH (23:17)
[2019-11-12] MEDS: Pantoprazole TAB * 40 MG TAB PO SCH (23:17)
[2019-11-12] MEDS ORDERED: Diazepam INJ CARPUJECT* 5 MG/ML IV ONE (23:34)
[2019-11-13] MEDS: Diazepam INJ CARPUJECT* 5 MG/ML IV ONE ×2 (00:09→04:16)
--- NOTE | 2019-11-13 00:24 | OP ---
DATE OF OPERATION: 11/12/19 - ROOM #333 DATE OF : 43 SURGEON: Kirstie Palma MD DIGITAL RECRUITER: KADE Martini. The case was done with the assistance of an WHISTLE PUNK because of the complexity of the case. ANESTHESIA: General. PRE-OP DIAGNOSES: 1. Degenerative disk disease. 2. Cervical spondylotic myelopathy. 3. C7-T1 spondylolisthesis with cervical thoracic subluxation. POST-OP DIAGNOSES: 1. Degenerative disk disease. 2. Cervical spondylotic myelopathy. 3. C7-T1 spondylolisthesis with cervical thoracic subluxation. OPERATIVE PROCEDURE: The patient underwent posterior cervical decompression and fusion with C2 to T3 arthrodesis with locally harvested bone graft and DBX, laminectomies C2-C7 with bilateral C4-5, 5-6, 6-7, and C7-T1 foraminotomies with C2 pedicle screws, left C5 pedicle screw, bilateral C7, T1, T2, and T3 pedicle screws, and lateral mass screws C3 bilaterally, right C4, right C5 with intraoperative navigation and intraoperative electrophysiological monitoring. ESTIMATED BLOOD LOSS: 150 cc. COMPLICATIONS: None. SUMMARY: The patient is a very pleasant 73-year-old female with a history of previous laminectomy and lumbar decompression and fusion by Dr. De La Rosa. The patient presented with severe neck pain and upper extremity radiculopathy with signs of cervical spondylotic myelopathy with imaging finding consistent with progressive C7-T1 spondylolisthesis and multilevel stenosis and neural foraminal stenosis. After failing conservative treatment modalities, she was offered the option of surgical intervention in the form of posterior cervical decompression and fusion. After explaining the expectations, limitations, and possible complications of the procedure to the patient and her ex- with complications including but not limited to bleeding, infection, risk of injury to adjacent structures, coma, paralysis, , need for additional procedure, anesthesia risk, stroke, blindness, cancer, instability, hardware failure, adjacent level disease, pseudoarthrosis, spinal fluid leak, loss of bladder or bowel control, spinal cord injury, paralysis, need for prolonged ICU stay, prolonged hospitalization, prolonged rehabilitation, need for tracheostomy or gastrostomy, proximal or distal junctional kyphosis/failure and need for additional procedures, anesthesia risks, the patient was agreeable to proceed with surgery and informed consent was obtained. The patient understood that her condition may not improve and in fact it may get worse after surgery and that she may require additional procedures in the future. The patient also understood that the purpose of the procedure is to stabilize her condition and her myelopathy and pain may not improve. She also understood that the operative plan may be modified according to the intraoperative findings and conditions and the case may be abandoned or done in more than one stages. The patient understood that she may require prolonged hospitalization, prolonged rehabilitation, and prolonged ICU stay. DESCRIPTION OF PROCEDURE: The patient was brought to the operating room and was placed under general anesthesia by the anesthesia team. She was carefully positioned prone on the [place] table and all bony prominences were meticulously padded. Her skin was prepped and draped in the standard fashion. After appropriate surgical pause and patient identification, a midline incision was marked over the spinous process of C1 to T3. After infiltrating the skin with local anesthetic, incision was made with a N 10 surgical blade and advanced with Bovie cautery. Self-retaining retractors were introduced into the field. The dorsal fascia was divided in both sides of the midline with Bovie cautery and the paraspinal musculature was elevated with periosteal elevators and Bovie cautery in a subperiosteal fashion. The spinous process, lamina as well as lateral masses of C3 through C7 were identified and exposed as well as the lamina and spinous process of T1, T2, and T3 as well as spinous process and the lamina and pars of C2. Self-retaining retractors were introduced further into the field. Then attention was brought to insert the lateral mass screws. High-speed drill was used to perform partal facetectomies and removal of osteophytes, and after the entry points were identified, high-speed drill was used to perform a pilot control operator helper hole in each level. Handheld drill was then used to create the trajectory of the lateral mass screws and after checking the integrity of the path with Kimble probe, Medtronic Infinity 3.5 x 12 mm screws were inserted at C3, C4, C5, and C6 bilaterally. Of note, the patient's bone was found to be extremely soft and unfortunately the lateral mass of the left C4 and C5 as well as bilateral C6 were not able to accommodate bilateral mass screws and showed signs of possible fractures. Extensive foraminotomies at C4 -5, C5-6, C6-7level were performed. The navigation star was then attached on the spinous process of T3 and intraoperative O-arm imaging was obtained. This confirmed the excellent placement of the lateral mass screws at C3, the right C4 as well as left C6. The patient's data was transferred to navigation platform and under stereotactic navigation, the pedicles of T1, T2, and T3 were cannulated with use of high-speed drill and hand-held drill and pedicle screws were inserted. Infinity 3.5 x 22 mm screws from Medtronic were used for the T1 level, 3.5 x 24 for the T2 level, and 3.5 x 26 for the T3 level. Similarly, entry points for the C2 pedicle screws were marked with the assistance of intraoperative navigation and the pedicles were cannulated with use of high- speed drill and hand- held drill. After confirmation of bony girard in all trajectories, 3.5 x 22 mm screw was inserted on the right C2 pedicle and 3.5 x 16 mm screw for the left C2 pedicle. Due to the medial course of the vertebral artery, a shorter pedicle screw was elected to be placed. It was elected to insert left C5 pedicle screw in order to reinforce the construct as the lateral masses were found to have suboptimal purchase and it was deemed that the bone quality was relatively poor. Intraoperative imaging confirmed excellent placement of all hardware. The right T1 pedicle screw was gently redirected as intraoperative O-arm imaging showed a slight medial position without breach of the spinal canal. Of note, during the process of the right T1 screw redirection, Kimble probe confirmed the presence bony wall without breach in all aspects of the pedicle screw trajectory. Due to the poor quality of the bone, the left C6 screw was removed and it was elected to place bilateral C7 pedicle screws under stereotactic navigation. 3.5 x 22 mm screws were inserted while C7-T1 bilateral foraminotomies were also completed. Intraoperative O-arm imaging confirmed excellent placement of all hardware and after positioning the patient's head in straight position, alignment was found to be excellent at the C7-T1. Two titanium rods were cut and shaped in order to connect the screw head caps. Lateral connectors were used for the right C7 and right T1 pedicle screws, while lateral connectors were used for the left C5 and C7 pedicles screws. The rods were then secured with screw head caps in place. Then attention was brought to perform a laminectomy between C2 and T1 as the patient was found to have imaging findings with significant evidence of stenosis in multiple levels including the C7-T1. High-speed drill and #1 Kerrison punches were used to perform the laminectomies and complete the foraminotomies. At the end of the decompression, the thecal sac and the exiting nerves were found to be free of any pressure phenomena. After copious irrigation and confirmation of meticulous hemostasis and meticulous inspection, the high-speed drill was used to decorticate all exposed bony surfaces and a mixture of locally harvested bone graft from the laminectomy part of the procedure as well as DBX putty were used to perform an arthrodesis between C2- T3 bilaterally. A Nolan drain was placed in the epidural space and tunneled through separate stab wound incision and after copious irrigation, confirmation of meticulous hemostasis, and meticulous inspection, the self-retaining retractors were removed and the wound was closed by layers with 0 interrupted Vicryl sutures for the dorsal fascia while the subcutaneous tissue was approximated with combination of interrupted 0 and 2-0 Vicryl sutures. The skin was then approximated with running and simple interrupted 0 Prolene sutures. The wound was then covered with sterile dressings. At the end of the procedure, all counts were reported to be correct. The patient remained hemodynamically stable throughout the case and intraoperative electrophysiological monitoring remained stable throughout the case. The patient was then turned supine, was extubated, and was transferred to the Recovery in excellent condition. [id number]/[facility] #: [id number] IDNU
[2019-11-13] MEDS: HYDROmorphone INJ1* 1 MG/ML SYRINGE IV PRN ×6 (00:55→11:58)
[2019-11-13] MEDS: Meclizine TAB* 12.5 MG PO PRN (01:02)
[2019-11-13] MEDS ORDERED: Naloxone* 0.4 MG/ML 1 ML VIAL IV PUSH PRN (02:23)
[2019-11-13] MEDS ORDERED: Diazepam INJ CARPUJECT* 5 MG/ML IV ONE (04:15)
[2019-11-13] MEDS ORDERED: HYDROmorphone INJ* 0.5 MG/0.5 ML SYRINGE ONE (07:31)
[2019-11-13] MEDS ORDERED: Methocarbamol* 100 MG/ML 10 ML VIAL IV ONE (07:54)
[2019-11-13] MEDS: Ondansetron INJ* 2 MG/ML VIAL IV PRN ×3 (10:00→20:22)
[2019-11-13] MEDS ORDERED: Lactated Ringers 1000 ML Bag* 1,000 ML IV SCH (10:00)
[2019-11-13] MEDS ORDERED: SUMAtriptan TAB* 50 MG PO ONE (11:00)
[2019-11-13] MEDS: CMC:Budesonide CAP(NF) 3 MG PO SCH (11:57)
[2019-11-13] MEDS: buPROPion SR TAB.SR* 150 MG PO SCH ×2 (11:59→20:17)
[2019-11-13] MEDS: Diazepam TAB(*) 5 MG PO PRN ×2 (12:00→20:17)
[2019-11-13] MEDS ORDERED: Diazepam INJ CARPUJECT* 5 MG/ML IV PRN ×2 (12:23→15:09)
[2019-11-13] MEDS: CMC:Desvenlafaxine (NF) 50 MG TAB PO SCH (12:31)
--- NOTE | 2019-11-13 14:37 | CONSULT ---
Consult Consult: November 13, 2019 INPATIENT PAIN CONSULTATION Mikaela Gonsalez is a 71 year old female. She has a history of bilateral craniectomies for aneurysm clipping. She has had low back pain and neck pain for at least 25 years. She has been a patient in the [facility] since 2006, at least. She had a previous lumbar fusion in 2016 and a previous cervical fusion in 2013. She gets epidural steroid injections which help her according to the patient. She had been on chronic opioid therapy for her pain but went off all her opioid therapy in the spring. She had been on Dilaudid 8 mg tablets 5 times a day. After she went off all her medications, she developed increasing pain in the summer. She had new MRIs of her cervical, thoracic and lumbar spine. She had progression of her listhesis at C7/T1. She was referred to Dr. Palma. Yesterday, she underwent a C2-T3 arthrodesis. She has had severe pain post op. She has been put on a PASSEMENTERIE WORKER as well as IV Valium and still feels that the pain is severe. I am asked to see her in consultation. PAST MEDICAL HISTORY: Aneurysm clipping, migraine heaches, fibromyalgia, back and neck surgeries, as above, orthostatic hypotension Allergies Allergy/AdvReac Type Severity Reaction Status Date / Time amoxicillin Allergy Nausea And Verified 11/12/19 06:29 Vomiting codeine Allergy cramps Verified 11/12/19 06:29 Sulfa (Sulfonamide Allergy Vomiting Verified 11/12/19 06:29 Antibiotics) Current Medications Acetaminophen (Tylenol Tab*) 650 mg PO Q4H PRN PRN Reason: MILD PAIN or TEMP > 100.4 Hydrocodone Bitart/Acetaminophen ([place] 5-325 Tab*) 1 tab PO Q4H PRN PRN Reason: moderate pain Hydrocodone Bitart/Acetaminophen ([place] 5-325 Tab*) 2 tab PO Q4H PRN PRN Reason: PAIN - SEVERE Last Admin: 11/13/19 08:37 Dose: 2 tab Budesonide (Budesonide Cap(Nf)) 9 mg PO DAILY [facility]; Protocol Last Admin: 11/13/19 11:57 Dose: 9 mg Bupropion HCl (Wellbutrin Sr Tab*) 150 mg PO BID [facility] Last Admin: 11/13/19 11:59 Dose: 150 mg Desvenlafaxine Succinate (Pristiq (Nf)) 150 mg PO 1200 [facility] Last Admin: 11/13/19 12:31 Dose: 150 mg Diazepam (Valium Tab(*)) 5 mg PO Q8H PRN PRN Reason: .BACK PAIN Last Admin: 11/13/19 12:00 Dose: 5 mg Diazepam (Valium Carpuject*) 2 mg IV Q4H PRN PRN Reason: .SPASMS Dicyclomine HCl (Bentyl Cap*) 10 mg PO QID PRN PRN Reason: STOMACH PROBLEMS Hydromorphone HCl (Dilaudid Inj1s*) 1 mg IV Q1H PRN PRN Reason: .PAIN Last Admin: 11/13/19 11:58 Dose: 1 mg Morphine Sulfate (Morphine Glass Calibrator Adult* 5 Mg/Ml) 30 mls @ 0 mls/hr PASSEMENTERIE WORKER .change Q24H [facility]; Protocol Last Admin: 11/12/19 21:11 Dose: 1 mls/hr Lactated Ringer's (Lactated Ringers 1000 Ml Bag*) 1,000 mls @ 50 mls/hr IV .PER RATE [facility] Magnesium Hydroxide (Milk Of MagnSymcat Liq*) 30 ml PO DAILY PRN PRN Reason: CONSTIPATION Meclizine HCl (Antivert Tab*) 50 mg PO BEDTIME PRN PRN Reason: NAUSEA Last Admin: 11/13/19 01:02 Dose: 50 mg Melatonin (Melatonin) 18 mg PO QPM [facility] Naloxone HCl (Narcan*) 0.08 mg IV PUSH Q2M PRN PRN Reason: SEDATION Ondansetron HCl (Zofran Inj*) 4 mg IV Q4H PRN PRN Reason: NAUSEA/VOMITING Last Admin: 11/13/19 10:00 Dose: 4 mg Pantoprazole Sodium (Protonix Tab*) 40 mg PO BEDTIME [facility] Last Admin: 11/12/19 23:17 Dose: Not Given Sumatriptan Succinate (Imitrex Tab*) 100 mg PO ONCE PRN PRN Reason: MIGRAINE HEADACHE Trazodone HCl (Desyrel Tab*) 100 mg PO BEDTIME [facility] Last Admin: 11/12/19 23:17 Dose: Not Given SOCIAL HISTORY: Rare drinker, non smoker. She denies marijuana use, tried medical marijuana but got headaches from it. ROS: No chest pain Vital Signs Temp Pulse Resp BP Pulse Ox 98.1 F 97 18 112/58 100 11/13/19 11:32 11/13/19 11:32 11/13/19 12:00 11/13/19 11:32 11/13/19 11:32 EXAM: NECK: Immobilized in [place] J collar LUNGS: Clear HEART: reg rhythm ABDOMEN: Soft EXTREMITIES: Normal tone NEUROLOGIC: Sensation appears intact to LT. Moves all 4 extremities ASSESSMENT: 1. C2-T3 arthrodesis 2. Back Spasms PLAN: Although she has not been on opioids for the past 9 months, she was previously on high dose opioids for years. I think the current [place] dose will not be effective and the Morphine PASSEMENTERIE WORKER is not helping. I favor eliminating the PASSEMENTERIE WORKER. Try Dilaudid 6-8 mg PO q 4 PRN, with IV dilaudid for breakthrough. Will add low dose baclofen for spasms, try to limit IV valium. I will follow.
[2019-11-13] MEDS ORDERED: HYDROmorphone INJ1* 1 MG/ML SYRINGE IV PRN (15:06)
[2019-11-13] MEDS: HYDROmorphone TAB* 4 MG PO PRN ×2 (16:47→22:49)
[2019-11-13] MEDS ORDERED: Melatonin 3 MG TAB PO SCH (18:00)
--- NOTE | 2019-11-13 18:07 | PN ---
Progress Note - Progress Note Date of Service: 11/13/19 SOAP: Subjective: []Patient was seen early in am. No events ON. Resting comfortably initially. Had onset of c/o of incision pain and muscle spasms after discussing need to convert IV pain medications to po. Not OOB yet. Tolerates MJ collar well. Objective: []VSS, Afebrile Wound s,c,d. Drain output noted. Drain was discontinued. Catheter appeared to be intact. No complications. Patient tolerated the procedure well. AAOx3 ITZEL, CN II-XII grossly intact. Motor 5/5 all extremities Sensory grossly intact to light touch. Assessment: []73 yof POD#1 C2-T3 PCDF Plan: []Monitor VS, Neurochecks Encourage ambulation DC nhi, FERNANDO XR this am, limited due to inability of patient to cooperate due to pain. Patient was given IV Dilaudid for the drain removal. Discussed with Dr Oakes regarding pain control who contacted Dr Butler. Dr Butler kindly consulted on patient and adjusted medications. Patient reported to be much more comfortable this pm per nurse. Appreciate IM, Dr Oakes's, Dr Butler's care. OOB with PT in am Repeat C spine XR in am. Sharif Palma MD
[2019-11-13] MEDS: SUMAtriptan TAB* 100 MG PO PRN (19:01)
[2019-11-13] MEDS: Pantoprazole TAB * 40 MG TAB PO SCH (20:17)
[2019-11-13] MEDS: traZODone TAB* 100 MG PO SCH (20:17)
[2019-11-13] MEDS: Baclofen TAB* 10 MG PO SCH (20:17)
[2019-11-14] MEDS: Diazepam TAB(*) 5 MG PO PRN ×3 (04:15→19:54)
[2019-11-14] MEDS: HYDROmorphone TAB* 4 MG PO PRN ×5 (04:16→21:43)
[2019-11-14] MEDS: Ondansetron INJ* 2 MG/ML VIAL IV PRN (04:20)
--- NOTE | 2019-11-14 07:27 | PN ---
Progress Note - Progress Note Date of Service: 11/14/19 SOAP: Subjective: [] No events ON. Resting comfortably. Pain much better controlled. Not OOB yet. Tolerates MJ collar well. Tolerates po well. Wants to go home today. Objective: []VSS, Afebrile Wound s,c,d. AAOx3 ITZEL, CN II-XII grossly intact. Motor 5/5 all extremities Sensory grossly intact to light touch. Assessment: []73 yof POD#2 C2-T3 PCDF Plan: []Monitor VS, Neurochecks Encourage ambulation DC hankins this am. Repeat C spine XR this am. PT DC planning today. DC instructions were discussed with the patient: No lifting No bending, No driving. Keep incision dry. May shower after two days, No baths. Follow up in the office in 7-10 days. Appreciate IM, Dr Oakes's, Dr Butler's care. Sharif Palma MD []
[2019-11-14] MEDS: CMC:Budesonide CAP(NF) 3 MG PO SCH (09:04)
[2019-11-14] MEDS: Baclofen TAB* 10 MG PO SCH ×2 (09:04→21:33)
[2019-11-14] MEDS: SUMAtriptan TAB* 100 MG PO PRN ×2 (09:05→19:55)
[2019-11-14] MEDS: buPROPion SR TAB.SR* 150 MG PO SCH ×2 (09:06→21:31)
[2019-11-14] MEDS: CMC:Desvenlafaxine (NF) 50 MG TAB PO SCH (12:16)
[2019-11-14] MEDS: Meclizine TAB* 12.5 MG PO PRN ×2 (16:29→21:44)
--- NOTE | 2019-11-14 16:58 | PN ---
Progress Note - Progress Note Date of Service: 11/14/19 Note: INPATIENT PAIN-PROGRESS NOTE She is doing and plans to go home tomorrow. Her pain is adequately controlled. She preferred the Valium IV. She was able to walk to the bathroom and sit in a chair. The shaking of her arms has stopped. Current Medications Acetaminophen (Tylenol Tab*) 650 mg PO Q4H PRN PRN Reason: MILD PAIN or TEMP > 100.4 Baclofen (Lioresal Tab*) 5 mg PO BID [facility] Last Admin: 11/14/19 09:04 Dose: 5 mg Budesonide (Budesonide Cap(Nf)) 9 mg PO DAILY [facility]; Protocol Last Admin: 11/14/19 09:04 Dose: 9 mg Bupropion HCl (Wellbutrin Sr Tab*) 150 mg PO BID [facility] Last Admin: 11/14/19 09:06 Dose: 150 mg Desvenlafaxine Succinate (Pristiq (Nf)) 150 mg PO 1200 [facility] Last Admin: 11/14/19 12:16 Dose: 150 mg Diazepam (Valium Tab(*)) 5 mg PO Q8H PRN PRN Reason: .BACK PAIN Last Admin: 11/14/19 12:16 Dose: 5 mg Diazepam (Valium Carpuject*) 2 mg IV Q6H PRN PRN Reason: SPASMS-TRY ORAL FIRST Last Admin: 11/13/19 15:50 Dose: 2 mg Dicyclomine HCl (Bentyl Cap*) 10 mg PO QID PRN PRN Reason: STOMACH PROBLEMS Hydromorphone HCl (Dilaudid Inj1s*) 1 mg IV Q2H PRN PRN Reason: PAIN Unrelieved by oral Last Admin: 11/13/19 18:41 Dose: 1 mg Hydromorphone HCl (Dilaudid Tab*) 4 mg PO Q4H PRN PRN Reason: PAIN - MODERATE Last Admin: 11/13/19 16:47 Dose: 4 mg Hydromorphone HCl (Dilaudid Tab*) 8 mg PO Q4H PRN PRN Reason: PAIN - SEVERE Last Admin: 11/14/19 13:05 Dose: 8 mg Magnesium Hydroxide (Milk Of Magnesia Liq*) 30 ml PO DAILY PRN PRN Reason: CONSTIPATION Meclizine HCl (Antivert Tab*) 50 mg PO BEDTIME PRN PRN Reason: NAUSEA Last Admin: 11/14/19 16:29 Dose: 50 mg Melatonin (Melatonin) 18 mg PO BEDTIME [facility] Naloxone HCl (Narcan*) 0.08 mg IV PUSH Q2M PRN PRN Reason: SEDATION Ondansetron HCl (Zofran Inj*) 4 mg IV Q4H PRN PRN Reason: NAUSEA/VOMITING Last Admin: 11/14/19 04:20 Dose: 4 mg Pantoprazole Sodium (Protonix Tab*) 40 mg PO BEDTIME [facility] Last Admin: 11/13/19 20:17 Dose: 40 mg Prochlorperazine (Compazine 10 Mg Tab) 10 mg PO Q6H PRN PRN Reason: NAUSEA Last Admin: 11/14/19 09:06 Dose: 10 mg Sumatriptan Succinate (Imitrex Tab*) 100 mg PO DAILY PRN PRN Reason: MIGRAINES; MAY REPEAT X1 Trazodone HCl (Desyrel Tab*) 100 mg PO BEDTIME [facility] Last Admin: 11/13/19 20:17 Dose: 100 mg Vital Signs Temp Pulse Resp BP Pulse Ox 99.2 F 110 16 119/55 97 11/14/19 15:03 11/14/19 15:03 11/14/19 15:04 11/14/19 15:03 11/14/19 15:03 EXAM: NECK: in [place] J LUNGS: Clear HEART: Reg rhythm ABDOMEN: Soft NEUROLOGIC: Sensation intact. Able to move 4 extremities ASSESSMENT: 1. C2-T3 Arthrodesis 2. Spasms PLAN: She can go home with Dilaudid 8 mg tablets, 1 PO Q4 PRN, Disp# 35, Valium 5 mg Q8 PRN (Disp#15) and Baclofen 5 mg BID. She can call the [facility] next week. I will send in the prescriptions for Dilaudid, Valium and Baclofen to [facility] [employer]
[2019-11-14] MEDS: Melatonin 3 MG TAB PO SCH (21:30)
[2019-11-14] MEDS: Pantoprazole TAB * 40 MG TAB PO SCH (21:31)
[2019-11-14] MEDS: traZODone TAB* 100 MG PO SCH (21:32)
[2019-11-15] MEDS: HYDROmorphone TAB* 4 MG PO PRN ×5 (03:50→21:35)
[2019-11-15] MEDS: Diazepam TAB(*) 5 MG PO PRN ×3 (04:15→21:30)
[2019-11-15] MEDS: CMC:Budesonide CAP(NF) 3 MG PO SCH (08:44)
[2019-11-15] MEDS: buPROPion SR TAB.SR* 150 MG PO SCH ×2 (08:44→21:26)
[2019-11-15] MEDS: Baclofen TAB* 10 MG PO SCH ×2 (08:45→21:28)
[2019-11-15] MEDS: CMC:Desvenlafaxine (NF) 50 MG TAB PO SCH (12:59)
--- NOTE | 2019-11-15 18:11 | PN ---
Progress Note - Progress Note Date of Service: 11/15/19 SOAP: Subjective: []No events ON. Resting comfortably. Pain much better controlled ON. Ambulates well. Tolerates MJ collar well. Tolerates po well. Patient was scheduled to go home today, but because of difficulty with pain when she was trying to get to the wheelchair it was decided that it would better to stay one more night for pain control. Patient would like to go home tomorrow. Objective: [] VSS, Afebrile Wound s,c,d. AAOx3 ITZEL, CN II-XII grossly intact. Motor 5/5 all extremities Sensory grossly intact to light touch. Assessment: []73 yof POD#3 C2-T3 PCDF Plan: [] Monitor VS, Neurochecks Encourage ambulation Repeat C spine XR yesterdat revealed good alignment of spine, good placement of hardware. DC planning in am. DC instructions were discussed again with the patient: No lifting No bending, No driving. Keep incision dry. May shower after two days, No baths. Follow up in the office in 7-[address] Wang's Dr Escobedo's, Dr Oakes's, Dr Butler's care. Sharif Palma MD
[2019-11-15] MEDS: Melatonin 3 MG TAB PO SCH (21:27)
[2019-11-15] MEDS: traZODone TAB* 100 MG PO SCH (21:29)
[2019-11-15] MEDS: Pantoprazole TAB * 40 MG TAB PO SCH (21:29)
[2019-11-16] MEDS: CMC:Budesonide CAP(NF) 3 MG PO SCH (09:13)
[2019-11-16] MEDS: HYDROmorphone TAB* 4 MG PO PRN ×3 (09:14→18:15)
[2019-11-16] MEDS: Baclofen TAB* 10 MG PO SCH ×2 (09:16→20:50)
[2019-11-16] MEDS: buPROPion SR TAB.SR* 150 MG PO SCH ×2 (09:19→20:48)
[2019-11-16] MEDS: Diazepam TAB(*) 5 MG PO PRN ×2 (09:20→18:14)
[2019-11-16] MEDS: CMC:Desvenlafaxine (NF) 50 MG TAB PO SCH (14:07)
[2019-11-16] MEDS: Pantoprazole TAB * 40 MG TAB PO SCH (20:48)
[2019-11-16] MEDS: traZODone TAB* 100 MG PO SCH (20:48)
[2019-11-16] MEDS: Melatonin 3 MG TAB PO SCH (20:50)
--- NOTE | 2019-11-17 00:11 | PN ---
Progress Note - Progress Note Date of Service: 11/16/19 SOAP: Subjective: []Patient was seen early in am. No events ON. Resting comfortably. Pain much better controlled. Ambulates well. Tolerates MJ collar well. Tolerates po well. Patient's ex- at bedside. Objective: []VSS, Afebrile Wound s,c,d. AAOx3 ITZEL, CN II-XII grossly intact. Motor 5/5 all extremities Sensory grossly intact to light touch Assessment: []73 yof POD#4 C2-T3 PCDF Plan: [] Monitor VS, Neurochecks Encourage ambulation DC planning. PT e eval. bdc manager to discuss with patient DC options. Patient was seen with Dr Wang today. Discussed DC options with patient and her ex-. Appreciate Dr Wang's, Dr Escobedo's, Dr Oakes's, Dr Butler's care. Sharif Palma MD
[2019-11-17] MEDS: HYDROmorphone TAB* 4 MG PO PRN ×4 (04:12→20:36)
[2019-11-17] MEDS: SUMAtriptan TAB* 100 MG PO PRN (07:45)
[2019-11-17] MEDS: Diazepam TAB(*) 5 MG PO PRN ×2 (07:51→20:34)
[2019-11-17] MEDS: buPROPion SR TAB.SR* 150 MG PO SCH ×2 (09:13→20:36)
[2019-11-17] MEDS: CMC:Budesonide CAP(NF) 3 MG PO SCH (09:13)
[2019-11-17] MEDS: Baclofen TAB* 10 MG PO SCH ×3 (09:14→20:34)
[2019-11-17] MEDS ORDERED: Diazepam TAB(*) 5 MG PO ONE (11:57)
[2019-11-17] MEDS ORDERED: HYDROmorphone TAB* 4 MG PO ONE (11:57)
[2019-11-17] MEDS: DESVENLAFAXINE 50 MG PO SCH (13:53)
--- NOTE | 2019-11-17 20:31 | PN ---
Progress Note - Progress Note Date of Service: 11/17/19 SOAP: Subjective: []No events ON. Resting comfortably. Pain much better controlled. When discussing about DC planning, patient starts complaining of severe muscle spasms. Ambulates well. Tolerates MJ collar well. Tolerates po well. Objective: []VSS, Afebrile Wound s,c,d. AAOx3 ITZEL, CN II-XII grossly intact. Motor 5/5 all extremities Sensory grossly intact to light touch Assessment: []73 yof POD#5 C2-T3 PCDF Plan: [] Monitor VS, Neurochecks Encourage ambulation DC planning. CT c spine revealed good alignment of cervical spine. cSVA 35 mm. Hardware intact with good placement. CT T spine: Good alignment. No fractures. Appreciate Dr Wang's, Dr Escobedo's, Dr Oakes's, Dr Butler's care. Sharif Palma MD
[2019-11-17] MEDS: traZODone TAB* 100 MG PO SCH (20:34)
[2019-11-17] MEDS: Pantoprazole TAB * 40 MG TAB PO SCH (20:35)
[2019-11-17] MEDS: Melatonin 3 MG TAB PO SCH (20:35)
[2019-11-18] MEDS: HYDROmorphone TAB* 4 MG PO PRN ×5 (04:32→23:05)
[2019-11-18] MEDS: SUMAtriptan TAB* 100 MG PO PRN ×2 (04:33→22:22)
[2019-11-18] MEDS: Diazepam TAB(*) 5 MG PO PRN (04:33)
[2019-11-18] MEDS: buPROPion SR TAB.SR* 150 MG PO SCH ×2 (07:49→22:12)
[2019-11-18] MEDS: CMC:Budesonide CAP(NF) 3 MG PO SCH (07:49)
[2019-11-18] MEDS: Baclofen TAB* 10 MG PO SCH ×3 (07:50→22:12)
[2019-11-18] MEDS ORDERED: Docusate CAP* 100 MG PO PRN (09:59)
[2019-11-18] MEDS ORDERED: CHLORZOXAZONE 750 MG PO PRN (10:02)
[2019-11-18] MEDS: Polyethylene Glycol 3350* 17 GM PACKET PO SCH (10:49)
[2019-11-18] MEDS: DESVENLAFAXINE 50 MG PO SCH (12:39)
[2019-11-18] MEDS ORDERED: Methocarbamol TAB* 500 MG PO PRN (15:56)
--- NOTE | 2019-11-18 18:20 | PN ---
Progress Note - Progress Note Date of Service: 11/18/19 Note: INPATIENT PAIN-PROGRESS Called back to see Mikaela. She remains in a lot of pain and has had trouble with disposition. She had her Valium stopped this morning in favor of Lorzone which she has taken in the past. Unfortunately not available in hospital. Remains on Baclofen 10 mg TID, and Robaxin 1500 mg Q6 PRN as well as Dilaudid 8 mg tabs Q 4 H PRN. Still reports severe pain and is still acting out Current Medications Acetaminophen (Tylenol Tab*) 650 mg PO Q4H PRN PRN Reason: MILD PAIN or TEMP > 100.4 Baclofen (Lioresal Tab*) 10 mg PO TID [facility] Last Admin: 11/18/19 14:08 Dose: 10 mg Budesonide (Budesonide Cap(Nf)) 9 mg PO DAILY [facility]; Protocol Last Admin: 11/18/19 07:49 Dose: 9 mg Bupropion HCl (Wellbutrin Sr Tab*) 150 mg PO BID [facility] Last Admin: 11/18/19 07:49 Dose: 150 mg Desvenlafaxine Succinate (Pristiq (Nf)) 100 mg PO 1200 [facility] Last Admin: 11/18/19 12:39 Dose: 100 mg Dicyclomine HCl (Bentyl Cap*) 10 mg PO QID PRN PRN Reason: STOMACH PROBLEMS Docusate Sodium (Colace Cap*) 100 mg PO DAILY PRN PRN Reason: CONSTIPATION Last Admin: 11/18/19 10:49 Dose: 100 mg Hydromorphone HCl (Dilaudid Tab*) 4 mg PO Q4H PRN PRN Reason: PAIN - MODERATE Last Admin: 11/17/19 04:12 Dose: 4 mg Hydromorphone HCl (Dilaudid Tab*) 8 mg PO Q4H PRN PRN Reason: PAIN - SEVERE Last Admin: 11/18/19 10:07 Dose: 8 mg Magnesium Hydroxide (Milk Of Magnesia Liq*) 30 ml PO DAILY PRN PRN Reason: CONSTIPATION Meclizine HCl (Antivert Tab*) 50 mg PO BEDTIME PRN PRN Reason: NAUSEA Last Admin: 11/14/19 21:44 Dose: 50 mg Melatonin (Melatonin) 18 mg PO BEDTIME [facility] Last Admin: 11/17/19 20:35 Dose: 18 mg Methocarbamol (Robaxin Tab*) 1,500 mg PO Q6H PRN PRN Reason: SPASMS - MUSCLE Last Admin: 11/18/19 17:21 Dose: 1,500 mg Naloxone HCl (Narcan*) 0.08 mg IV PUSH Q2M PRN PRN Reason: SEDATION Non-Formulary Medication (Chlorzoxazone) 750 mg PO TID PRN PRN Reason: SPASMS - BACK Ondansetron HCl (Zofran Inj*) 4 mg IV Q4H PRN PRN Reason: NAUSEA/VOMITING Last Admin: 11/14/19 04:20 Dose: 4 mg Pantoprazole Sodium (Protonix Tab*) 40 mg PO BEDTIME [facility] Last Admin: 11/17/19 20:35 Dose: 40 mg Polyethylene Glycol/Electrolytes (Miralax*) 17 gm PO DAILY [facility] Last Admin: 11/18/19 10:49 Dose: 17 gm Prochlorperazine (Compazine 10 Mg Tab) 10 mg PO Q6H PRN PRN Reason: NAUSEA Last Admin: 11/14/19 09:06 Dose: 10 mg Sumatriptan Succinate (Imitrex Tab*) 100 mg PO DAILY PRN PRN Reason: MIGRAINES; MAY REPEAT X1 Last Admin: 11/18/19 04:33 Dose: 100 mg Trazodone HCl (Desyrel Tab*) 100 mg PO BEDTIME [facility] Last Admin: 11/17/19 20:34 Dose: 100 mg EXAM: NECK: In BLOW MOLDER LUNGS: Clear HEART: reg rhythm ABDOMEN: Soft EXTREMITIES: Normal tone NEUROLOGIC: Alert. Moves all 4 extremities ASSESSMENT: 1. C2-T3 Arthrodesis 2. Spasms PLAN: I will stop her Robaxin and her Lorzone and try Soma 350 mg Q6PRN. I will add a Fentanyl patch, 50 mcg/hr. I will see her in the am.
[2019-11-18] MEDS ORDERED: Carisoprodol TAB* 350 MG PO PRN (18:25)
[2019-11-18] MEDS ORDERED: Magnesium Hydroxide LIQ* 30 ML UDC PO ONE (18:32)
[2019-11-18] MEDS: fentaNYL Patch Check Q Shift 1 NOTE SCH (18:45)
--- NOTE | 2019-11-18 18:45 | PN ---
Progress Note - Progress Note Date of Service: 11/18/19 SOAP: Subjective: []No events ON. Resting comfortably. Pain much better controlled. 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 Ambulates well. Tolerates PO well. Not very happy with hospital food. Objective: [] ]VSS, Afebrile Wound s,c,d. AAOx3 ITZEL, CN II-XII grossly intact. Motor 5/5 all extremities Sensory grossly intact to light touch Assessment: []73 yof POD#6 C2-T3 PCDF Plan: [] Monitor VS, Neurochecks Encourage ambulation DC planning. Ok to start SQ Heparin from NS standpoint. Nutrition consult. Appreciate Dr Wang's, Dr Escobedo's, Dr Oakes's, Dr Butler's care. Sharif Palma MD
[2019-11-18] MEDS ORDERED: fentaNYL PATCH 50 MCG/HR TRANSDERM SCH ×2 (19:00→20:00)
[2019-11-18] MEDS: Pantoprazole TAB * 40 MG TAB PO SCH (22:11)
[2019-11-18] MEDS: Melatonin 3 MG TAB PO SCH (22:11)
[2019-11-18] MEDS: traZODone TAB* 100 MG PO SCH (22:11)
[2019-11-18] MEDS: Docusate CAP* 100 MG PO SCH (22:28)
[2019-11-18] MEDS: Senna TAB 8.6 mg* TAB PO SCH (22:28)
[2019-11-19] MEDS: HYDROmorphone TAB* 4 MG PO PRN ×4 (05:05→21:52)
[2019-11-19] MEDS: fentaNYL Patch Check Q Shift 1 NOTE SCH ×2 (07:18→19:05)
[2019-11-19] MEDS: Polyethylene Glycol 3350* 17 GM PACKET PO SCH (09:46)
[2019-11-19] MEDS: CMC:Budesonide CAP(NF) 3 MG PO SCH (09:46)
[2019-11-19] MEDS: Docusate CAP* 100 MG PO SCH ×2 (09:46→21:57)
[2019-11-19] MEDS: buPROPion SR TAB.SR* 150 MG PO SCH ×2 (09:46→21:55)
[2019-11-19] MEDS: Baclofen TAB* 10 MG PO SCH ×3 (09:49→21:55)
--- NOTE | 2019-11-19 12:31 | PN ---
Progress Note - Progress Note Date of Service: 11/19/19 SOAP: Subjective: []No events ON. Resting comfortably. Pain much better controlled today. 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 Gets out of bed on her own. Ambulates well. Tolerates PO well. Wants to go home. Objective: [] VSS, Afebrile Wound s,c,d. AAOx3 ITZEL, CN II-XII grossly intact. Motor 5/5 all extremities Sensory grossly intact to light touch Assessment: []73 yof POD#7 C2-T3 PCDF Plan: [] Monitor VS, Neurochecks Encourage ambulation DC planning possible today. Appreciate Dr Wang's, Dr Escobedo's, Dr Oakes's, Dr Butler's care. Sharif Palma MD
[2019-11-19] MEDS: DESVENLAFAXINE 50 MG PO SCH (14:04)
[2019-11-19] MEDS ORDERED: fentaNYL PATCH 25 MCG/HR TRANSDERM SCH (19:00)
[2019-11-19] MEDS: Melatonin 3 MG TAB PO SCH (21:52)
[2019-11-19] MEDS: traZODone TAB* 100 MG PO SCH (21:52)
[2019-11-19] MEDS: Pantoprazole TAB * 40 MG TAB PO SCH (21:52)
[2019-11-19] MEDS: Senna TAB 8.6 mg* TAB PO SCH (21:57)
[2019-11-20] MEDS: HYDROmorphone TAB* 4 MG PO PRN ×2 (04:57→08:56)
[2019-11-20] MEDS: fentaNYL Patch Check Q Shift 1 NOTE SCH (07:32)
[2019-11-20] MEDS: buPROPion SR TAB.SR* 150 MG PO SCH (08:55)
[2019-11-20] MEDS: Baclofen TAB* 10 MG PO SCH (08:55)
[2019-11-20] MEDS: CMC:Budesonide CAP(NF) 3 MG PO SCH (08:56)
[2019-11-20] MEDS: Docusate CAP* 100 MG PO SCH (08:56)
[2019-11-20] MEDS: Polyethylene Glycol 3350* 17 GM PACKET PO SCH (08:57)
--- NOTE | 2019-11-20 09:06 | PN ---
Progress Note - Progress Note Date of Service: 11/20/19 SOAP: Subjective: []No events ON. Resting comfortably. Pain much better controlled. Has FITTER TYPE BAR AND SEGMENT . Gets out of bed on her own. Ambulates well. Tolerates PO well. Wants to go home. Yesterday patient appealed her discharge. Objective: []VSS, Afebrile Wound s,c,d. AAOx3 ITZEL, CN II-XII grossly intact. Motor 5/5 all extremities Sensory grossly intact to light touch Assessment: []73 yof POD#8 C2-T3 PCDF Plan: [] Monitor VS, Neurochecks Encourage ambulation DC planning possible today. Appreciate Dr Wang's, Dr Escobedo's, Dr Oakes's, Dr Butler's care. Sharif Palma MD
[2019-11-20 11:49] VITALS: BP 116/52
--- NOTE | 2019-11-20 12:28 | DS ---
CC: Dr. Palma; Dr. Butler; Dr. Oakes DISCHARGE SUMMARY: DATE OF ADMISSION: 11/12/19 DATE OF DISCHARGE: 11/20/19 DISCHARGE DIAGNOSES: 1. 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 2. History of autoimmune hepatitis. 3. History of microscopic colitis. 4. History of lumbar radiculopathy. 5. History of thyroid nodule. 6. History of iron deficiency anemia. 7. History of migraine. 8. History of depression. 9. Chronic headache. OPERATION: Cervical decompression, fusion with C2 to T3 arthrodesis with locally harvested bone graft and DBX, laminectomy C2-7 with bilateral C4-5, C5-6 , C6-7 and C7-T1 foraminotomies with CD pedicle screws, left C5 pedicle screw, bilateral C7, T1, T2, and T3 pedicle screws and lateral mass screws C3 bilaterally, right C4, right C5-C6 with intraoperative navigation and intraoperative electrophysiological monitoring. HISTORY: Mikaela Gonsalez is a 73-year-old woman admitted for surgery as noted above. Please see the dictated admission note for details of the present illness, past medical history, family history, social and personal history, review of systems, and physical examination. IMAGING: Fluoroscopy on 11/12/19 provided for surgical procedure, cervical spine x- ray 11/13/19. Limited single lateral projection of the cervical spine demonstrates anterior and posterior cervical fusion. Cervical spine x-ray 11/14, no change. Cervical spine CT 11/17/19, status post spinal fusion, degenerative disk disease and osteoarthritis, neural foraminal narrowing. No significant cervical spinal stenosis 3.4 cm, right thyroid nodule. Thoracic spine CT 11/17/19, osteopenia, degenerative disk disease and osteoarthritis, small bilateral pleural effusion status post spinal fusion. HOSPITAL COURSE: The patient was admitted, underwent surgery as noted above. She had pain and spasm postoperatively. She was seen in consultation for pain by Dr. Oakes from Anesthesiology and Dr. Butler from Physiatry. She received hydromorphone for pain. Various different antispasmodics were tried for spasms including Valium, cyclobenzaprine, baclofen, tizanidine was ordered, but she had previous reaction to that. She also received orders for chlorzoxazone, but could not be supplied from home. Methocarbamol was used once. As pain continued, fentanyl patch was added. 50 mcg made her too groggy , it was cut back to 25 mcg prior to discharge. She received physical therapy. Prior to discharge, she was able to walk in the [place]. It was suggested that she go to a halfway facility for subacute rehab, which she declined. She was insisting on going home. At the time of discharge, she is being discharged to go home, transferred by wheelchair ambulance. Her ex- will be meeting her at home. He will be picking up her prescriptions. MEDICATIONS AT THE TIME OF DISCHARGE: 1. Premarin 1.25 mg twice a day. 2. Bupropion 150 mg twice a day. 3. Chlorzoxazone 750 mg t.i.d. as needed. 4. Fioricet 2 q.3h. p.r.n. headache. 5. Aspirin 1000 mg daily. 6. Trazodone 200 to 400 mg at bedtime. 7. Budesonide 6 mg daily. 8. Pristiq (desvenlafaxine) 100 mg daily. 9. Rizatriptan 10 mg p.r.n. migraine. 10. Prochlorperazine 10 mg every 6 hours as needed for nausea. 11. 1 daily as needed. 12. Pantoprazole 40 mg daily. 13. MultiVites 1 daily. 14. Melatonin 20 mg at bedtime. 15. Budesonide 6 mg daily. 16. Vitamin D 50,000 units as before. 17. Baclofen 10 mg 3 times a day. 18. Docusate 100 mg twice a day. 19. Fentanyl patch 25 mcg every 3 days. 20. Hydromorphone 8 mg every 4 hours as needed for pain. 21. MiraLAX 17 g daily. DIET: Regular. She is to be up with a Vringo collar on. ACTIVITIES: She was given also a cervical thoracic brace, but she felt this very uncomfortable, rubbed on her hip. She can shower in 2 days. FOLLOWUP: She is to follow up with Dr. Palma in 1 to 2 weeks. She is to follow up with Dr. Linda Wang as needed. She will have visiting nurse service checking on her. She is being discharged home in improved condition. [id number]/[facility] #: [id number] INDU
[2019-11-20] MEDS: DESVENLAFAXINE 50 MG PO SCH (12:29)
== END 2019-11-20 13:24 | disposition home health service (06) | DRG 472 ==
LOC: AA 05:25 → SSU 18:16
PROVIDERS: ADMIT Neurological Surgery; ATTEND Internal Medicine Geriatric Medicine
PROC: 0RG40AJ Fusion of Cervicothoracic Vertebral Joint with Interbody Fusion Device, Posterior Approach, Anterior Column, Open Approach (ICD-10-PCS; 2019-11-12)
PROC: 01N10ZZ Release Cervical Nerve, Open Approach (ICD-10-PCS; 2019-11-12)
PROC: 01N80ZZ Release Thoracic Nerve, Open Approach (ICD-10-PCS; 2019-11-12)
PROC: 0RG20AJ Fusion of 2 or more Cervical Vertebral Joints with Interbody Fusion Device, Posterior Approach, Anterior Column, Open Approach (ICD-10-PCS; principal; 2019-11-12 07:30)
DX: M50.01 Cervical disc disorder with myelopathy, high cervical region (principal); M47.12 Other spondylosis with myelopathy, cervical region; J90 Pleural effusion, not elsewhere classified; M43.12 Spondylolisthesis, cervical region; M48.02 Spinal stenosis, cervical region; M40.13 Other secondary kyphosis, cervicothoracic region; G44.89 Other headache syndrome; M47.814 Spondylosis without myelopathy or radiculopathy, thoracic region; M51.34 Other intervertebral disc degeneration, thoracic region; M85.88 Other specified disorders of bone density and structure, other site; M25.78 Osteophyte, vertebrae; Z66 Do not resuscitate; M62.830 Muscle spasm of back; G89.18 Other acute postprocedural pain; K58.9 Irritable bowel syndrome, unspecified; G89.29 Other chronic pain; Z88.1 Allergy status to other antibiotic agents; Z88.5 Allergy status to narcotic agent; Z88.2 Allergy status to sulfonamides; Z79.899 Other long term (current) drug therapy; Z82.3 Family history of stroke; Z82.49 Family history of ischemic heart disease and other diseases of the circulatory system; Z83.3 Family history of diabetes mellitus; Z80.49 Family history of malignant neoplasm of other genital organs; Z80.42 Family history of malignant neoplasm of prostate; Z82.5 Family history of asthma and other chronic lower respiratory diseases; Z87.891 Personal history of nicotine dependence
CPT/HCPCS: 36415; 72040; 72125; 72128; 76000; 86850; 86900; 86901; A9270-GY; C1713; C1776; J1100; J1170; J1240; J1885; J2250; J2270; J2405; J2704; J2765; J2800; J3360; J3370; Q0164

== ENCOUNTER 2019-11-21 17:08 | Inpatient (IN) | payer MEDICARE ==
--- NOTE | 2019-11-21 17:35 | ED ---
Altered Mental Status - HPI Summary HPI Summary: Pt is a 73 y/o F presenting to the ED brought in by EMS with a chief complaint of hallucinations initially onset a little while ago. Per EMS, her ex- called the police to do a wellness check d/t concern for confusion after neck surgery on 11/12/2019. The police wanted her to be evaluated and called EMS who spent an hour and a half trying to get her story sorted. She called her doctor who agreed she should come into the ED. Pt admits to hallucinations, but she is aware of them and she denies confusion. She denies fever, vomiting, diarrhea, constipation, shortness of breath, or chest pain. She thinks she was slipped LSD. She notes nausea from the EMS ride and she hasnt eaten today d/t being unable to. Medications reviewed. Allergies noted. - History Of Current Complaint Chief Complaint: EDPsychosocial Stated Complaint: HALLUCINATIONS PER EMS Time Seen by Provider: 11/21/19 17:17 Hx Obtained From: Patient, EMS Onset/Duration: Still Present, Gradually Timing: Constant, Lasting Hours Severity Initially: Moderate Severity Currently: Moderate Aggravating Factor(s): Nothing Alleviating Factor(s): Nothing Associated Signs And Symptoms: Positive: Negative - Allergies/Home Medications Allergies/Adverse Reactions: Allergies Allergy/AdvReac Type Severity Reaction Status Date / Time amoxicillin Allergy Nausea And Verified 11/12/19 06:29 Vomiting codeine Allergy cramps Verified 11/12/19 06:29 Sulfa (Sulfonamide Allergy Vomiting Verified 11/12/19 06:29 Antibiotics) tizanidine Allergy Altered Verified 11/18/19 13:06 Mental Status PMH/Surg Hx/FS Hx/Imm Hx Previously Healthy: Yes Endocrine/Hematology History: Reports: Hx Systemic Lupus Erythematosus Denies: Hx Bone Marrow Disease, Hx Diabetes, Hx Sickle Cell Disease, Hx Thyroid Disease - RECENTLY DIAGNOSED BENIGN TUMOR, Hx Anemia Cardiovascular History: Reports: Hx Hypercholesterolemia Denies: Hx Angina, Hx Congestive Heart Failure, Hx Coronary Artery Disease, Hx Hypertension, Hx Myocardial Infarction, Hx Pacemaker/ICD, Hx Peripheral Vascular Disease, Hx Rheumatic Fever, Hx Valvular Heart Disease, Other Cardiovascular Problems/Disorders Respiratory History: Reports: Other Respiratory Problems/Disorders - mild emphysema Denies: Hx Asthma, Hx Chronic Obstructive Pulmonary Disease (COPD), Hx Pulmonary Edema, Hx Pulmonary Embolism, Hx Sleep Apnea GI History: Reports: 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, LIVER PANELS NOW NORMAL, Hx Gastroesophageal Reflux Disease, Hx Irritable Bowel, Hx Ulcer, Other GI Disorders - diarrhea Denies: Hx Crohn's Disease, Hx Hiatal Hernia, Hx Jaundice History: Denies: Hx Dialysis, Hx Kidney Infection, Hx Kidney Stones, Hx Renal Disease , Other Problems/Disorders Musculoskeletal History: Reports: Hx Arthritis, Hx Rheumatoid Arthritis, Hx Back Problems, Hx Bursitis - HX OF IN SHOULDERS, Hx Scoliosis Denies: Hx Osteoporosis, Hx Tendonitis, Other Musculoskeletal History Sensory History: Reports: Hx Cataracts Denies: Hx Contacts or Glasses, Hx Glaucoma, Hx Hearing Aid Opthamlomology History: Reports: Hx Cataracts Denies: Hx Contacts or Glasses, Hx Glaucoma Neurological History: Reports: Hx Headaches, Hx Migraine, Other Neuro Impairments/Disorders - PAIN CLINIC PT Denies: Hx Nerve Disease, Hx Seizures Psychiatric History: Reports: Hx Depression Denies: Hx Anxiety, Hx Panic Disorder - Cancer History Hx Chemotherapy: No Hx Radiation Therapy: No - Surgical History Surgery Procedure, Year, and Place: Lumbar fusion done 05/22/16 [place] [facility] [place]. De La Rosa.;. Bilateral Shoulder Surgery at [facility] [place] with [place]. Harmon. ;. FUSION C5-C7; [facility] [place]. BRAIN ANEURYSM CLIPS -[employer]omatixITA TITANIUM CLIP [id number] 1.5T ONLY;. HYSTERECTOMY;. C SECTION X2;. ABDOMINOPLASTY;. CARPAL TUNNEL;. PARTIAL GASTERECTOMY;. LASIK;. CATARACTS; Hx Anesthesia Reactions: No Infectious Disease History: No Infectious Disease History: Reports: Hx Hepatitis - LUPOID Denies: Hx Clostridium Difficile, Hx Human Immunodeficiency Virus (HIV), Hx of Known/Suspected MRSA, Hx Shingles, Hx Tuberculosis, History Other Infectious Disease, Traveled Outside the [place] in Last 30 Days - Family History Known Family History: Positive: Other - Patient denies relevant FHx - Social History Alcohol Use: None Hx Substance Use: Yes Substance Use Type: Reports: Marijuana Substance Use Comment - Amount & Last Used: Medical Marijuana Hx Tobacco Use: Yes Smoking Status (MU): Former Smoker Type: Cigarettes Amount Used/How Often: 1 -2 PPD X 54 YEARS Have You Smoked in the Last Year: No Review of Systems Negative: Fever Negative: Chest Pain Negative: Shortness Of Breath Positive: Nausea. Negative: Vomiting, Diarrhea, Other - constipation Positive: Other - hallucinations All Other Systems Reviewed And Are Negative: Yes Physical Exam - Summary Physical Exam Summary: Constitutional: Well-developed, Well-nourished, Alert. (-) Distressed Skin: Warm, Dry HENT: Normocephalic; Atraumatic Eyes: Conjunctiva normal Neck: Collar in place. (-) JVD, (-) Stridor, (-) Tracheal deviation Cardio: Rhythm regular, rate normal, Heart sounds normal; Intact distal pulses; Radial pulses are 2+ and symmetric. (-) Murmur Pulmonary/Chest wall: Effort normal. (-) Respiratory distress, (-) Wheezes, (-) Rales Abd: Soft, (-) tenderness, (-) Distension, (-) Guarding, (-) Rebound Musculoskeletal: (-) Edema. Full strength upper and lower extremities, collar in place. Lymph: (-) Cervical adenopathy Neuro: Alert, Oriented x3 Psych: Mood and affect Normal Triage Information Reviewed: Yes Vital Signs On Initial Exam: Initial Vitals Temp Pulse Resp BP Pulse Ox 96.3 F 107 20 126/57 100 11/21/19 17:17 11/21/19 17:17 11/21/19 17:17 11/21/19 17:17 11/21/19 17:17 Vital Signs Reviewed: Yes Procedures - Sedation Patient Received Moderate/Deep Sedation with Procedure: No Diagnostics - Vital Signs Vital Signs Temp Pulse Resp BP Pulse Ox 11/21/19 17:17 96.3 F 107 20 126/57 100 - Laboratory Result Diagrams: 11/21/19 17:46 11/21/19 17:46 Lab Statement: Any lab studies that have been ordered have been reviewed, and results considered in the medical decision making process. - CT Brain CT CT Interpretation Completed By: Radiologist Summary of CT Findings: 1. No acute intracranial findings. 2. Status post bilateral craniotomies with aneurysm clips in place. 3. Small metallic densities and foci of air in soft tissues posterior to the arch of C1, incompletely visualized. Correlate with history of recent instrumentation. ED physician has reviewed this report. - EKG 1737 Cardiac Rate: NL - 97bpm EKG Rhythm: Sinus Rhythm ST Segment: Normal Ectopy: None Summary of EKG Findings: EKG at 1737 shows NSR at 97bpm with a U wave in v2 and v3. No STEMI. ED physician has reviewed and interpreted this EKG. Re-Evaluation - Re-Evaluation 1st re-eval Re-Evaluation Time: 18:29 Change: Unchanged Comment: Discussed admission w/ patient. She declines. Will give IV Potassium then re-evaluate. 2nd re-eval Re-Evaluation Time: 20:00 Change: Unchanged Comment: Pt states has her keys, she is unsure how she's getting into her house tonight, and is considering staying at [facility] [place]. Altered Mental Statu Course/Dx - Course Course Of Treatment: Patient is here with delirium after being discharged from the hospital yesterday. Patient is AAO 3 but she expresses hallucinatory thoughts while speaking. Patient is overall well-appearing. Patient had blood performed which showed hypomagnesemia, hypokalemia, rule out hyperthyroidism, and elevated troponin. Patient was at home by herself and does not have keys to her apartment. Patient did not want to stay but was eventually convinced to stay. Patient was admitted to the hospitalist. - Diagnoses Provider Diagnoses: AMS (altered mental status), Delirium, Hypokalemia, Hypomagnesemia, Elevated troponin, Hyperthyroidism - Provider Notifications Discussed Care Of Patient With: Lorin Arellano Time Discussed With Above Provider: 20:34 Instructed by Provider To: Admit As Inpatient Discharge ED - Sign-Out/Discharge Documenting (check all that apply): Patient Departure - Discharge Plan Condition: Stable Disposition: ADMITTED TO [facility] Referrals: Linda Wang MD [Primary Care Provider] - - Billing Disposition and Condition Condition: STABLE Disposition: Admitted to [facility] - Attestation Statements Document Initiated by Scribe: Yes Documenting Scribe: Michaelle Reynolds Provider For Whom Hero is Documenting (Include Credential): Radu Mendes MD. Scribe Attestation: Michaelle Gill, charlesed for Radu Mendes MD. on 11/21/19 at 2051. Scribe Documentation Reviewed: Yes Provider Attestation: The documentation as recorded by the scribeMichaelle accurately reflects the service I personally performed and the decisions made by me, Radu Mendes MD. Status of Scribe Document: Viewed
[2019-11-21 17:57] LABS: ABS Basophils 0.1 10^3/ul (0-0.2); ABS Eosinophils 0.1 10^3/ul (0-0.6); ABS Lymphocytes 1.2 10^3/ul (1.0-4.8); ABS Monocytes 1.1 10^3/ul (0-0.8); ABS Neutrophils 7.6 10^3/ul (1.5-7.7); Eosinophil % 1.5 %; Hematocrit 32 % (35-47); Hemoglobin 10.7 g/dL (12.0-16.0); Lymphocyte % 11.8 %; Mean Corpuscular HGB Conc 33 g/dL (31-36); Mean Corpuscular Hemoglobin 29 pg (27-31); Mean Corpuscular Volume 87 fL (80-97); Mean Platelet Volume 7.5 fL (7.4-10.4); Nucleated Red Blood Cells % 0.1; Platelet Count 415 10^3/uL (150-450); Red Cell Distribution Width 14 % (10-15); White Blood Count 10.2 10^3/uL (3.5-10.8)
[2019-11-21 18:15] LABS: ALT 30 U/L (7-52); AST 43 U/L (13-39); Albumin 3.3 g/dL (3.2-5.2); Albumin/Globulin Ratio 1.2 (1-3); Alkaline Phosphatase 70 U/L (34-104); BUN/Creatinine Ratio 26.7 (8-20); Blood Urea Nitrogen 16 mg/dL (6-24); CO2 Carbon Dioxide 35 mmol/L (22-32); Chloride 92 mmol/L (101-111); EGFR African American 118.2 (>60); EGFR Non-African American 97.7 (>60); Globulin 2.7 g/dL (2-4); Glucose 105 mg/dL (70-100); Sodium 140 mmol/L (135-145)
[2019-11-21 18:22] LABS: Anion Gap 13 mmol/L (2-11); Potassium 2.3 mmol/L (3.5-5.0)
--- OUTSIDE RECORDS SUMMARY | 2019-11-21 18:23 | XMS REPORT ---
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, thesis, 1-16 Espinoza lumbar lumbar region region Allergies, Adverse Reactions, Alerts Allergy Name Allergy Status Severity Reaction(s) Onset Inactive Treating Comments Type Date Date Clinician Sulfa Allergen Active Unknown Reaction 2020-0 Shirin Beam (Sulfonamide Group Unknown -16 Antibiotics) codeine Base Active Unknown Reaction 2020-0 Shirin Beam Ingredient Unknown -16 amoxicillin Base Active Unknown Reaction 2020-0 Shirin Beam Ingredient Unknown 1-16 Medications Ordered Filled Start Stop Current Ordering Indication Dosage Frequency Signature Comments Components Medication Medication Date Date Medication? Clinician (SIG) Name Name No Known No Known No None None None Medications Medications For This For This Patient Patient Procedures This patient has no known procedures. Results This patient has no known results.
[2019-11-21] MEDS: KCL 20 MEQ/100 ML IVPREMIX* 20 MEQ/100 ML BAG IV SCH ×2 (18:35→21:45)
[2019-11-21 18:39] LABS: Troponin I 0.03 ng/mL (<0.03)
[2019-11-21 18:53] LABS: Magnesium 1.8 mg/dL (1.9-2.7); TSH (Thyroid Stimulating Horm) 0.31 mcIU/mL (0.34-5.60)
[2019-11-21] MEDS ORDERED: Magnesium Sulfate 2 GM IV* 2 GM/50 ML BAG IVPB ONE (19:29)
[2019-11-21 20:06] LABS: Free T4 1.25 ng/dL (0.61-1.12)
[2019-11-21 20:29] LABS: Urine Appearance Cloudy; Urine Bilirubin Negative (Negative); Urine Blood Negative (Negative); Urine Color Amber; Urine Glucose Negative (Negative); Urine Ketones 2+ (Negative); Urine Nitrite Negative (Negative); Urine Protein 1+(30 mg/dL) (Negative); Urine Urobilinogen Negative (Negative)
[2019-11-21] MEDS ORDERED: LORazepam INJ* 2 MG/ML 1 ML VIAL IV PUSH ONE (20:29)
[2019-11-21] MEDS ORDERED: Lorazepam PYXIS KEY PRN (20:29)
[2019-11-21] MEDS ORDERED: Lorazepam PYXIS KEY ONE (20:41)
[2019-11-21 20:42] LABS: Urine Bacteria Absent (Absent); Urine Red Blood Cell Absent (Absent); Urine Squamous Epithelial Cell Present (Absent); Urine White Blood Cell Trace(0-5/hpf) (Absent)
[2019-11-21 20:44] LABS: Urine Benzodiazepine Screen Presumptive Positive (None Detect); Urine Opiates Screen Presumptive Positive (None Detect)
[2019-11-21] MEDS ORDERED: Potassium Chlor TAB* 20 MEQ TAB.ER PO ONE (22:13)
[2019-11-21] MEDS ORDERED: risperiDONE TAB* 1 MG PO ONE (22:14)
[2019-11-21] MEDS ORDERED: Acetaminophen TAB* 325 MG PO PRN (22:15)
[2019-11-22] MEDS ORDERED: fentaNYL PATCH 25 MCG/HR TRANSDERM SCH
[2019-11-22] MEDS: NS 0.9% 1000 ML** 1,000 ML IV SCH ×2 (00:19→19:35)
--- NOTE | 2019-11-22 01:10 | HP ---
CC: Dr. Linda Wang; Dr. Palma HISTORY AND PHYSICAL: DATE OF ADMISSION: 11/21/19 PRIMARY CARE PHYSICIAN: Dr. Linda Wang. REASON FOR THE ADMISSION: Confusion, hallucination. 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 Her ex- had called the police to do a wellness check because he was concerned that the patient was having some confusion after the neck surgery. The police went to evaluate her and spent a while trying to figure out what what was going on. Her doctor was contacted and the patient was brought into the emergency room. The patient has been having hallucinations, when I am evaluating her. She is hallucinating talking to someone in the room that is not present. According to the emergency room, she mentioned that may be somebody slipped her an LSD drug, her urine tox in the emergency room was positive for marijuana, benzodiazepine, barbiturates and opiates. She recently had a neck surgery, was discharged yesterday. The patient states that she is not in any pain right now, feels dehydrated, she does not always answer my questions appropriately. She keeps on talking to unknown person in the room. PAST MEDICAL HISTORY: Includes: 1. Migraine. 2. Irritable bowel syndrome. 3. Gastroesophageal reflux disease. 4. Chronic pain syndrome. 5. Depression. 6. History of SLE. 7. History of autoimmune hepatitis. 8. History of microscopic colitis. 9. History of lumbar radiculopathy. 10. History of thyroid nodule. 11. Iron deficiency anemia. 12. Chronic headaches. PAST SURGICAL HISTORY: Includes: 1. Lumbar and cervical spine fusion. 2. Most recently C7-T1 spondylolisthesis with cervical thoracic subluxation on 11/12/19. 3. x2. 4. Partial gastrectomy. 5. History of craniectomy with aneurysm clipping x2. HOME MEDICATIONS: Include: 1. Vitamin C 1000 mg daily. 2. Tylenol 650 mg every 4 hours as needed. 3. Pristiq 100 mg in the afternoon. 4. Fioricet 2 tabs every 3 hours as needed for migraine. 5. Melatonin 20 mg at bedtime. 6. Vitamin D2 monthly. 7. Polyethylene glycol, MiraLAX 17 g daily. 8. 1 tablet daily as needed. 9. Multivitamin 1 tablet daily. 10. Trazodone 200 to 400 mg at bedtime as needed. 11. Bupropion 150 mg twice a day. 12. Colace 100 mg b.i.d. 13. Compazine 10 mg every 6 hours as needed. 14. Baclofen 10 mg t.i.d. 15. Fentanyl patch 25 micrograms every 72 hours. 16. Rizatriptan 10 mg as needed for migraine. 17. Pantoprazole 40 mg at bedtime. 18. Premarin 1.25 mg b.i.d. 19. Lorzone 750 mg t.i.d. 20. Budesonide 6 mg daily. 21. Dilaudid 8 mg every 4 hours as needed. ALLERGIES: Include AMOXICILLIN, CODEINE, SULFA, TIZANIDINE. FAMILY HISTORY: According to the chart mother at age 83 from uterine cancer. Father at age 89 from Alzheimer's disease. Brother with prostate cancer. There is also family history of stroke and diabetes. SOCIAL HISTORY: Alcohol use none. No marijuana use. Former smoker. She lives at home alone. She has 1 to 2 pack year history x54 years. REVIEW OF SYSTEMS: Limited as the patient cannot give reliable history. PHYSICAL EXAMINATION GENERAL: This is an elderly female, sitting on a chair in no distress. VITAL SIGNS: Blood pressure 127/78, saturation of 98% on room air, respiratory rate of 18, heart rate of 100, temperature of 98.6 Fahrenheit. HEENT: She has a cervical collar on. [place] J collar is in place. There is no thyromegaly. There is no cervical lymphadenopathy. There is no oropharyngeal edema. LUNGS: No tachypnea, no use of accessory muscles. Lungs are clear without any wheezing, rales, or rhonchi. HEART: There is no chest wall tenderness, regular tachycardia, no murmurs. ABDOMEN: Normoactive bowel sounds in all 4 quadrants, abdomen is soft, nontender, nondistended. NEUROLOGICAL: The patient is awake, oriented to x2, she is having active hallucinations right know, otherwise she is calm. Does not appear to be in agitated state. MUSCULOSKELETAL: Range of motion at the knees are intact bilaterally, again cervical collar is in place. DIAGNOSTIC STUDIES/LAB DATA: The patient had WBC 10.2, hemoglobin 10.7, hematocrit 32, platelets of 415. Sodium of 140, potassium 2.3, chloride 92, bicarb 35, anion gap 13, BUN 16, creatinine 0.60, glucose of 105, magnesium of 1.8. AST of 43. Troponin I of 0.03. TSH of 0.31, free T4 of 1.25. Urine protein 1+, urine ketones 2+, squamous cell were present in the urinalysis. Toxicology positive for opiates, barbiturates, benzodiazepine, cannabinoids. The patient also had a brain CT done which revealed no acute intracranial finding, status post bilateral craniotomy with aneurysm clips in place, small metallic density and foci of air in the soft tissue, posterior in the arch of C1 incompletely visualized. The patient also had an EKG done which showed sinus rhythm with the heart rate of [address]-T changes. IMPRESSION AND PLAN: 1. Altered mental status: With hallucination, this could be secondary to polypharmacy, as well as drug use. The patient mentioned that somebody slipped her LSD. At this point, we will continue the patient's home regimen, but I will hold the patient's Dilaudid as the patient does not appear to be in pain currently. Continue fentanyl, I will give her 1 dose of risperidone. Continue Seroquel at night time. Continue the home medications. 2. Hypokalemia with hypomagnesemia: Repletion has been ordered, repeat blood work tomorrow morning, supplement electrolytes as warranted. 3. Elevated troponin, this could be demand related ischemia: At this point, the patient is recent status post cervical surgery. I will not give her any aspirin or treat this unless the troponin continues to significantly trend upward. There are no EKG changes. No mention of chest pain at this point. 4. Abnormal thyroid studies, TSH of 0.31, free T4 of 1.25. This could be beginning of hyperthyroidism. Currently, the patient is not having any thyroid storm features. The patient would benefit probably from propranolol if need be for symptom management verus starting the patient on PTU or with methimazole. At this point, I think the patient prior to starting these medications, we should consult with Endocrinology. 5. History of migraines. 6. History of chronic pain. 7. For DVT prophylaxis, I will start the patient on sequential compression device. 8. The patient does appear to be dehydrated, this could be causing somewhat an altered mental status as well, start the patient on IV fluids. 9. History of iron deficiency anemia: 10. Recent cervical surgery, continue to have the [place] J collar on. [id number]/[facility] #: [id number] MTDD
[2019-11-22] MEDS ORDERED: Haloperidol INJ IV/IM* 5 MG/ML AMP IM ONE (04:48)
[2019-11-22] MEDS: fentaNYL Patch Check Q Shift 1 NOTE FOLLOW UP SCH ×2 (06:53→10:09)
[2019-11-22] MEDS ORDERED: levETIRAcetam 1000MG IVPREMIX* 1,000 MG/100 ML BAG IVPB ONE (08:52)
[2019-11-22] MEDS ORDERED: Thiamine INJ* 100 MG, Folic Acid IV* 1 MG, Multiple Vitamin IV ADULT* 10 ML in D5NS 0.9... IV ONE (08:53)
[2019-11-22] MEDS ORDERED: CHLORZOXAZONE 750 MG PO SCH (09:00)
[2019-11-22 09:09] LABS: ABS Basophils 0.1 10^3/ul (0-0.2); ABS Eosinophils 0.4 10^3/ul (0-0.6); ABS Lymphocytes 1.7 10^3/ul (1.0-4.8); ABS Neutrophils 6.6 10^3/ul (1.5-7.7); Eosinophil % 3.9 %; Hematocrit 32 % (35-47); Hemoglobin 10.7 g/dL (12.0-16.0); Lymphocyte % 17.2 %; Mean Corpuscular HGB Conc 33 g/dL (31-36); Mean Corpuscular Hemoglobin 29 pg (27-31); Mean Corpuscular Volume 88 fL (80-97); Mean Platelet Volume 7.3 fL (7.4-10.4); Platelet Count 408 10^3/uL (150-450); Red Cell Distribution Width 14 % (10-15); White Blood Count 9.7 10^3/uL (3.5-10.8)
[2019-11-22 09:25] LABS: Magnesium 2.2 mg/dL (1.9-2.7); Phosphorus 3.1 mg/dL (2.5-5.0)
[2019-11-22 09:28] LABS: Troponin I 0.01 ng/mL (<0.03)
--- NOTE | 2019-11-22 09:28 | PN ---
Progress Note - Progress Note Date of Service: 11/22/19 Note: I responded to a CAT call on Mikaela this AM. Reportedly the patient got herself out of bed and walked to the bathroom, her bed alarm was going off and nursing entered the room. They found her sitting up on the edge of the bed staring into space, she then fell over sideways in bed. When I entered the room the patient was lying on her R side with arms and legs shaking. The shaking stopped after about 30 seconds and she seemed unresponsive. I sternal rubbed the patient and she grabbed my wrist with her L hand scratching it. She had a couple other episodes of short lived shaking, occasionally just L UE and other times both arms and legs. She is very agitated and not allowing for labs to be drawn easily. She does not speak during this entire period of time. Finally after about 10-15min the patient did start talking some and clutching her chest. She answered yes to having chest pain (unclear if from the [place] J collar as she keeps grabbing at the lower portion of the collar). Plan: 1. EEG- I spoke with Dr. Prater who is calling in the mechanical test technician. He recommended loading with Keppra. 2. CT brain- done last night. No acute findings. 3. CT cervical/thoracic spine per Dr. Palma. Will get with IV contrast to r /o fluid collection. 4. LP-Pt will likely need LP given recent surgery with now mental status changes. Check CBC, CRP. 5. Possibly polypharmacy-Continue fentanyl patch but limit further narcotics and benzos. I have spoke to Dr. Wang, the patient's PCP who will assume care.
[2019-11-22 09:58] LABS: INR 1.3 (0.82-1.09)
[2019-11-22 10:08] LABS: BUN/Creatinine Ratio 27.6 (8-20); C Reactive Protein 180.92 mg/L (<8.01); Calcium 8.4 mg/dL (8.6-10.3); EGFR Non-African American 101.6 (>60); Potassium 2.8 mmol/L (3.5-5.0)
[2019-11-22 10:59] LABS: Erythrocyte Sed Rate 71 mm/Hr (0-29)
[2019-11-22] MEDS ORDERED: CMCS: Desvenlafaxine (NF) 50 MG TAB PO SCH (12:00)
[2019-11-22] MEDS: Baclofen TAB* 10 MG PO SCH ×3 (12:29→21:21)
[2019-11-22] MEDS: buPROPion SR TAB.SR* 150 MG PO SCH ×2 (12:30→21:23)
[2019-11-22] MEDS: Docusate CAP* 100 MG PO SCH ×3 (12:30→21:29)
[2019-11-22] MEDS: Polyethylene Glycol 3350* 17 GM PACKET PO SCH (12:30)
[2019-11-22] MEDS: CMCS: Budesonide CAP(NF) 3 MG PO SCH (12:30)
[2019-11-22] MEDS: Conjugated Estrogens TAB* 1.25 MG TAB PO SCH ×2 (12:30→21:22)
--- NOTE | 2019-11-22 12:35 | EEG ---
ELECTROENCEPHALOGRAPHY: DATE OF STUDY: 11/22/19 PATIENT OF: Dr. Senior. CLINICAL PROBLEM: This is a 73-year-old woman being evaluated for new onset of confusion and hallucinations as well as shaking episodes and staring spells this morning. During the tracing, the patient was not responding to names and had a staring spell going into the right arm tremoring episode. MEDICATIONS: Include: 1. Baclofen. 2. Budesonide. 3. Bupropion. 4. Premarin. 5. Keppra. 6. Protonix. 7. Melatonin. 8. Trazodone. 9. Fentanyl. 10. Desvenlafaxine. REPORT: With the patient apparently unresponsive, background cerebral activity consists of moderate amplitude 7 to 8 Hz rhythm. The patient appears to fall asleep during this tracing with background consisting of delta and theta activity of moderate amplitude and some admixed spindle activity, which is a normal sleep pattern. At the very onset of the tracing with the patient having the 8 Hz background rhythm, she had an episode of eyes opening and staring off and then going into right arm shaking, which was mild and more in the shoulder than in the arm. No clear-cut epileptiform potentials, focal abnormalities, or major asymmetries of background are noted including during the staring and shaking episode. CLINICAL IMPRESSION: This EEG shows no major abnormalities including during a clinical event as described above. Background with the patient appearing to be in awake state was mildly slow, but this may be secondary to medications the patient is consuming. [id number]/[facility] #: [id number] INDU
[2019-11-22] MEDS: Ascorbic Acid TAB* 500 MG PO SCH (13:29)
[2019-11-22] MEDS: KCL 20 MEQ/100 ML IVPREMIX* 20 MEQ/100 ML BAG IV SCH ×3 (13:29→20:22)
--- NOTE | 2019-11-22 13:40 | CONS ---
CONSULTATION REPORT: DATE OF CONSULT: 11/22/19 PATIENT OF: Dr. Linda Wang. HISTORY OF PRESENT ILLNESS: This is a 73-year-old woman I am asked to evaluate for odd spells, shaking and hallucinations. Of note, she had a recent C7 through T1 spondylolisthesis on 11/12/19 and was recently hospitalized up until 2 days ago. This was for her cervical disk disease with a spondylitic myelopathy. She had been a little agitated in the hospital and had been on varying doses of Pristiq, which she has typically been on at home and then fentanyl was added. Her ex- had contacted the police because he thought she was having increased confusion and agitation and was found to be having hallucinations and was brought into the emergency room where she was hallucinating by talking to somebody who was not present in the room. She had also claimed that somebody had slipped her LSD and of note her urine tox screen was positive for marijuana, benzodiazepines, barbiturates, and opiates, some of which she was getting from a medical point of view. This morning, she had an unresponsive episode associated with shaking and the shaking lasted about 30 seconds. She appeared unresponsive, and when Dr. Senior did a sternal rub, the patient grabbed Dr. Senior's wrist and then she was agitated afterwards. PAST MEDICAL HISTORY: Significant for migraine, irritable bowel syndrome, GERD , chronic pain syndrome, depression, history of SLE, history of autoimmune hepatitis, microscopic colitis, history of lumbar radiculopathy, thyroid nodule , iron- deficiency anemia. PAST SURGICAL HISTORY: Includes lumbar and cervical spine fusion, most recently C7-T1 spondylolisthesis; x2; partial gastrectomy; history of craniectomy with aneurysm clipping x2. HOME MEDICATIONS: Include: 1. Dilaudid 8 mg every 4 hours as needed. 2. Budesonide 6 mg daily. 3. Lorzone 750 t.i.d. 4. Premarin 1.25 mg b.i.d. 5. Pantoprazole 40 mg at bedtime. 6. Maxalt 10 mg as needed for migraine. 7. Fentanyl patch 25 mcg every 72 hours. 8. Baclofen 10 mg t.i.d. 9. Compazine 10 mg q.6 hours as needed. 10. Colace 100 mg twice a day. 11. Bupropion 150 mg twice a day. 12. Trazodone 200 to 400 mg at bedtime as needed. 13. 1 tablet daily as needed. 14. Polyethylene glycol 17 g daily. 15. Melatonin 20 mg at bedtime. 16. Fioricet 2 tabs every 3 hours as needed for migraine. 17. Pristiq 100 mg in the afternoon. ALLERGIES: She is allergic to AMOXICILLIN, CODEINE, SULFA, and TIZANIDINE. FAMILY HISTORY: Her mother at 83 from uterine cancer and father at 89 from Alzheimer's. Brother with prostate cancer. SOCIAL HISTORY: She does not abuse alcohol. She denies marijuana, but it was in her urine tox screen apparently. She is a former smoker. She lives at home alone and has a past history of 1 to 2 packs per year for 54 years. REVIEW OF SYSTEMS: She has no other complaints. There has been no numbness, weakness, recent or current headache. PHYSICAL EXAM: Temperature 99.1, pulse 96, respirations 13, blood pressure 132/ 56. She has not been febrile. She is alert and oriented with a strange affect, but there were no hallucinations currently. She knew where she was and what her age was. She followed commands appropriately. She said that "I am messed up." Cranial nerves II through XII were normal with sharp discs. Motor exam revealed normal tone and strength. She had tremors in both arms with intention , but not at rest for me. She had no liver flap. [id number] was intact. Sensation grossly intact to light touch. Reflexes were 2 and equal, downgoing toes. Neck was not tested because of the recent surgery. Chest: Clear. Cardiovascular: Regular rate and rhythm. Abdomen was soft. DIAGNOSTIC STUDIES/LAB DATA: I reviewed her CT scan from admission, which was poor quality but unremarkable. Her EEG was normal both awake and asleep. She had a staring spell with right arm shaking during the seemingly awake portion of the tracing. There were no epileptiform potentials or changes in background during that portion or during any other portion. It was a normal EEG. Labs include an INR of 1.3. Normal CBC other than a hematocrit of 32, sed rate was 71. Chemistries today had a potassium of 2.8, glucose 119, calcium 8.4. ALT 30, AST 43. TSH 0.3, free T4 1.25. IMPRESSION AND PLAN: Mikaela has had altered mental status including hallucinations, agitation, and shaking and staring spells. She is not clearly having seizures and I would not continue the Keppra long-term. I discussed with Dr. Wang that I would recommend that she have her on Keppra overnight so we get a little further away from these episodes, but I wonder whether this is a combination of a person with psychological issues on a combination of medications including antidepressants, fentanyl, , Dilaudid at home and then also the Pristiq and Wellbutrin. At this point, she looks much better and I agree with Dr. Wang simplifying the medicines. She raised the possibility of specifically serotonin syndrome. I think it is a possibility. She does not have fever and she has cleared up quickly. I discussed with Dr. Senior and Dr. Senior put in her note possibly that this woman might need a spinal tap. She has no fever, no white count, and she is significantly better than she had been, so I do not think we need to do a spinal tap at this point. We discussed all these issues with Dr. Wang. Thank you for sharing her case. [id number]/[facility] #: [id number] INDU
[2019-11-22] MEDS ORDERED: Iohexol 300* (CONTRAST) 10 ML SDV IV ONE (15:18)
[2019-11-22] MEDS ORDERED: KCL 20 MEQ/100 ML IVPREMIX* 20 MEQ/100 ML BAG IV ONE (20:30)
[2019-11-22] MEDS ORDERED: Budesonide CAP(NF) 3 MG PO ONE (21:00)
[2019-11-22] MEDS: HYDROmorphone TAB* 4 MG PO PRN (21:21)
[2019-11-22] MEDS: traZODone TAB* 100 MG PO SCH (21:22)
[2019-11-22] MEDS: Pantoprazole TAB * 40 MG TAB PO SCH (21:22)
[2019-11-22] MEDS: MELATONIN 20 MG PO SCH (21:27)
[2019-11-23 06:01] LABS: ABS Basophils 0.1 10^3/ul (0-0.2); ABS Eosinophils 0.6 10^3/ul (0-0.6); ABS Lymphocytes 1.4 10^3/ul (1.0-4.8); ABS Monocytes 0.7 10^3/ul (0-0.8); ABS Neutrophils 3.8 10^3/ul (1.5-7.7); Hematocrit 29 % (35-47); Hemoglobin 9.7 g/dL (12.0-16.0); Lymphocyte % 21.7 %; Mean Corpuscular HGB Conc 34 g/dL (31-36); Mean Corpuscular Hemoglobin 29 pg (27-31); Mean Corpuscular Volume 88 fL (80-97); Mean Platelet Volume 7.4 fL (7.4-10.4); Platelet Count 326 10^3/uL (150-450); Red Cell Distribution Width 14 % (10-15); White Blood Count 6.6 10^3/uL (3.5-10.8)
[2019-11-23 06:19] LABS: Albumin 2.6 g/dL (3.2-5.2); Albumin/Globulin Ratio 1.1 (1-3); C Reactive Protein 97.41 mg/L (<8.01); Calcium 7.4 mg/dL (8.6-10.3); EGFR African American 173.7 (>60); EGFR Non-African American 143.5 (>60); Globulin 2.3 g/dL (2-4); Magnesium 1.9 mg/dL (1.9-2.7); Total Bilirubin 0.4 mg/dL (0.2-1.0); Total Protein 4.9 g/dL (6.4-8.9)
[2019-11-23 06:22] LABS: Potassium 2.7 mmol/L (3.5-5.0)
[2019-11-23 06:35] LABS: TSH (Thyroid Stimulating Horm) 0.89 mcIU/mL (0.34-5.60)
[2019-11-23 06:37] LABS: Free T4 1.16 ng/dL (0.61-1.12)
[2019-11-23] MEDS: KCL 20 MEQ/100 ML IVPREMIX* 20 MEQ/100 ML BAG IV SCH ×3 (07:41→14:00)
[2019-11-23] MEDS: buPROPion SR TAB.SR* 150 MG PO SCH ×2 (10:09→22:03)
[2019-11-23] MEDS: Ascorbic Acid TAB* 500 MG PO SCH (10:09)
[2019-11-23] MEDS: Conjugated Estrogens TAB* 1.25 MG TAB PO SCH (10:09)
[2019-11-23] MEDS: CMCS: Budesonide CAP(NF) 3 MG PO SCH (10:09)
[2019-11-23] MEDS: Baclofen TAB* 10 MG PO SCH ×3 (10:09→22:04)
[2019-11-23] MEDS: Polyethylene Glycol 3350* 17 GM PACKET PO SCH (10:10)
[2019-11-23] MEDS: Docusate CAP* 100 MG PO SCH ×2 (10:10→22:08)
[2019-11-23] MEDS: NS 0.9% 1000 ML** 1,000 ML IV SCH ×2 (10:11→22:27)
[2019-11-23] MEDS: Pantoprazole TAB * 40 MG TAB PO SCH (22:04)
[2019-11-23] MEDS: CONJUGATED ESTROGENS 0.625 MG PO SCH (22:05)
[2019-11-23] MEDS: HYDROmorphone TAB* 4 MG PO PRN (22:13)
[2019-11-23] MEDS: traZODone TAB* 100 MG PO SCH (22:13)
[2019-11-23] MEDS: MELATONIN 20 MG PO SCH (22:16)
--- NOTE | 2019-11-23 22:28 | CONS ---
CONSULTATION REPORT: DATE OF CONSULT: 11/23/19 HISTORY OF PRESENT ILLNESS: The patient is a very pleasant 73-year-old female who is status post posterior cervical decompression and fusion C2 to T3 for C7- T1 spondylolisthesis, cervical thoracic kyphosis and cervical spondylotic myelopathy on 11/12/19. The patient tolerated the procedure well and was able to be discharged after prolonged hospital stay because of postoperative pain control difficulties. Patient was able to be discharged home and after her discharge, her ex- called to check on her. Because he was concerned that the patient had some confusion, he asked the police to evaluate her. The patient was found to have altered mental status and hallucinations and was brought to the emergency room and she was kindly admitted by the hospitalist team and was evaluated by Dr. Prater. Dr. Senior did an extremely detailed workup and her pain medication was adjusted. The patient this afternoon is doing extremely well. She has no confusion. She feels much more comfortable. She is very happy and grateful with the results of the operation and she feels that her preoperative neck pain has completely resolved. She reported finally she is able to hold her head in place. She is able to ambulate. She denies any weakness, numbness or tingling of her extremities. She is able to void. The patient had positive urine tox for marijuana, benzodiazepine, barbiturates and opiates. The patient reported at admission that somebody might have slipped her an LSD drug. PAST MEDICAL HISTORY: Migraine, irritable bowel syndrome, GERD, chronic pain syndrome, depression, history of SLE, history of autoimmune hepatitis, history of colitis, history of lumbar radiculopathy, history of thyroid nodule, iron- deficiency anemia, chronic headaches. PAST SURGICAL HISTORY: Lumbar and cervical spine fusion, C2-T3 posterior cervical decompression and fusion, x2, partial gastrectomy, history of craniectomy with aneurysm clipping x2. HOME MEDICATIONS: The patient was on: 1. Vitamin C. 2. Tylenol. 3. Pristiq. 4. Fioricet. 5. Melatonin. 6. Vitamin D2. 7. Polyethylene glycol. 8. . 9. Multivitamin. 10. Trazodone. 11. Bupropion. 12. Colace. 13. Compazine. 14. Baclofen. 15. Fentanyl patch. 16. Rizatriptan. 17. Pantoprazole. 18. Premarin. 19. Lorzone. 20. Budesonide. 21. Dilaudid. ALLERGIES: AMOXICILLIN, CODEINE, SULFA, TIZANIDINE. FAMILY HISTORY: Mother, uterine cancer; father, Alzheimer disease; brother with prostate cancer, history of stroke and diabetes. SOCIAL HISTORY: Tobacco negative. She is a former smoker. Alcohol negative. Recreational drug use negative. PHYSICAL EXAM: The patient is not in acute distress. She is awake, alert and oriented x3. Her pupils are equal and reactive. Cranial nerves II through XII are grossly intact. Motor 5/5 in all extremities. No pronator drift. Sensory grossly intact to light touch. Deep tendon reflexes +1 bilaterally. No clonus. No Babinski. Gonsalez's negative. Straight leg test negative in the supine position. The patient has [place] J collar. Her wound is soft and dry, healing very well. Wound dressing change was performed. DIAGNOSTIC STUDIES/LAB DATA: The patient had a CT scan of the brain that did not reveal any acute abnormalities. The patient had a CT scan of the cervical spine that revealed good placement of the hardware with good alignment of her cervical spine. No evidence of fluid collection or infection. The patient had a CT scan of the thoracic spine without evidence of fracture or subluxation. ASSESSMENT: The patient is a very pleasant 73-year-old female with now status post posterior cervical decompression and fusion with instrumentation between C2 and T3, who was admitted for altered mental status. PLAN: The patient at this point has done extremely well. Her mental status is improved. She has no confusion and no neurological deficits. She is very happy and grateful with the results of the operation. It is not clear to me what was the etiology of her confusion or hallucinations, polypharmacy may be one of etiologies. The patient would like to go home. Dr. Wang is kindly currently evaluating the patient and adjusting her medication. We would recommend nutrition consult and nutritional status evaluation. We will be happy to see the patient in approximately 2 weeks with a new x-ray of her cervical spine and re-evaluate her progress at that time in the office. Thank you for allowing us to participate in the care of this patient. Please do not hesitate to contact our office in case if you have any further questions or concerns regarding the care of this patient. [id number]/[facility] #: [id number] INDU
[2019-11-24 06:53] LABS: BUN/Creatinine Ratio 12.2 (8-20); C Reactive Protein 44.42 mg/L (<8.01); Calcium 7.6 mg/dL (8.6-10.3); EGFR African American 149.4 (>60); EGFR Non-African American 123.5 (>60); Potassium 2.8 mmol/L (3.5-5.0)
[2019-11-24] MEDS: buPROPion SR TAB.SR* 150 MG PO SCH ×2 (08:46→21:33)
[2019-11-24] MEDS: HYDROmorphone TAB* 4 MG PO PRN ×3 (08:47→17:25)
[2019-11-24] MEDS: Baclofen TAB* 10 MG PO SCH ×3 (08:47→21:33)
[2019-11-24] MEDS: CMCS: Budesonide CAP(NF) 3 MG PO SCH (08:48)
[2019-11-24] MEDS: CONJUGATED ESTROGENS 0.625 MG PO SCH ×2 (08:49→21:49)
[2019-11-24] MEDS: Docusate CAP* 100 MG PO SCH ×2 (08:51→21:36)
[2019-11-24] MEDS: Polyethylene Glycol 3350* 17 GM PACKET PO SCH (08:51)
[2019-11-24] MEDS ORDERED: CMC:Budesonide CAP(NF) 3 MG PO ONE (12:00)
[2019-11-24] MEDS: KCL 20 MEQ/100 ML IVPREMIX* 20 MEQ/100 ML BAG IV SCH ×3 (13:20→21:51)
[2019-11-24] MEDS: Potassium Chlor TAB* 20 MEQ TAB.ER PO SCH ×2 (13:26→21:33)
[2019-11-24] MEDS: Ascorbic Acid TAB* 500 MG PO SCH (13:26)
--- NOTE | 2019-11-24 15:45 | ECHO ---
*[facility]* [place] [address] Fax #: [phone] Transthoracic Echocardiogram Patient: Mikaela Gonsalez : 1945 Study Date: 11/24/2019 Age: 73 Gender: F HR: 91 bpm Height: 64 in /162.6 cm BSA: 1.52 m^2 Weight: 109.8 lb /49.9 kg BMI: 18.9 kg/m^2 *Chalk Extruding Machine Operator: * Hortencia Scott [facility] *Referring Physician: * Katia Wang *Reading Physician: * Jose Yuan MD Indications: Atrial Fibrillation. History: SLE. Atrial fibrillation. Conclusions Summary: - Left ventricle: Systolic function is normal. The estimated ejection fraction is 55-60%. Wall motion is normal; there are no regional wall motion abnormalities. - Right ventricle: Systolic function is normal. - Mitral valve: There is trace regurgitation. - Aortic valve: There is trace regurgitation. - Pulmonary arteries: Systolic pressure can not be accurately estimated. - Study data: No prior study is available for comparison. Study data: Transthoracic echocardiogram. Procedure: Transthoracic echocardiography was performed. Image quality was fair. Complete 2D, spectral Doppler, and color flow Doppler. Location: Bedside. Patient status: Inpatient. Patient room number: 448 02. No prior study is available for comparison. Rhythm: Normal sinus rhythm. Findings Left ventricle: The cavity size is normal. Wall thickness is mildly increased. Systolic function is normal. The estimated ejection fraction is 55-60%. Wall motion is normal; there are no regional wall motion abnormalities. Left ventricular diastolic function parameters are normal for the patient's age. Right ventricle: The cavity size is normal. Systolic function is normal. Left atrium: The atrium is normal in size. Right atrium: The atrium is normal in size. Mitral valve: The leaflets are mildly thickened. There is no evidence of stenosis. There is trace regurgitation. Aortic valve: The leaflets are normal thickness. There is no evidence of stenosis. There is trace regurgitation. Tricuspid valve: The leaflets are normal thickness. There is no evidence of stenosis. There is trace regurgitation. Pulmonic valve: Not well visualized. There is no significant regurgitation. Aorta: The aortic root appears normal. The aortic arch appears normal. Pericardium: There is no significant pericardial effusion. Pulmonary arteries: Systolic pressure can not be accurately estimated. Systemic veins: Inferior vena cava: The vessel is normal in size. There is (>= 50%) respiratory change in the IVC dimension. Measurements Left ventricle Value Ref Right atrium Value Ref SHALA, LAX (L) 3.6 cm 3.8 - 5.2 SI dim, ES 4.4 cm 3.4 - 5.3 ESD, LAX 2.7 cm 2.2 - 3.5 ML dim, ES, A4C 3.0 cm 2.6 - 4.4 FS, LAX (L) 24 % 27 - 45 Estimated RAP 8 mm Hg --------- PW, ED, LAX (H) 1.0 cm 0.6 - 0.9 E', lat katia, TDI (L) 9.4 cm/sec >=10.0 Aortic valve Value Ref E/e', lat katia, 8 Katia diam, ED 2.0 cm -------- - TDI Peak v, S 1.1 m/sec --------- E', med katia, TDI 7.4 cm/sec >=7.0 VTI, S 19.6 cm ----- ---- E/e', med katia, 10 Mean grad, S 2.0 mm Hg -------- - TDI Peak grad, S 5.0 mm Hg --------- E', avg, TDI 8.4 cm/sec E/e', avg, TDI 9 <=14 Mitral valve Value Ref Peak E 0.76 m/sec --------- LVOT Value Ref Peak A 0.93 m/sec --------- Peak caitlin, S 1 m/sec Decel time 148 ms --------- Mean grad, S 2 mm Hg Peak grad, D 2.3 mm Hg --------- Peak E/A ratio 0.8 --------- Ventricular septum Value Ref IVS, ED (H) 1.5 cm 0.6 - 0.9 Pulmonic valve Value Ref Peak v, S 0.73 m/sec --------- Right ventricle Value Ref Peak grad, S 2.0 mm Hg --------- SHALA minor ax, 2.0 cm 1.9 - 3.5 A4C mid Aortic root Value Ref Root diam 3.3 cm <3.8 Left atrium Value Ref Root max diam, ED 3.3 cm <3.8 AP dim, ES 2.90 cm 2.70 - 3.80 Inferior vena cava Value Ref ML dim, A4C 3.0 cm Diam 1.4 cm --------- SI dim, A4C 4.7 cm Vol/bsa, ES, A/L 19 ml/m^2 16 - 34 Legend: (L) and (H) faby values outside specified reference range. Prepared and electronically signed by Jose Yuan MD 11/24/2019 15:45
[2019-11-24] MEDS: traZODone TAB* 100 MG PO SCH (21:33)
[2019-11-24] MEDS: Pantoprazole TAB * 40 MG TAB PO SCH (21:33)
[2019-11-24] MEDS: MELATONIN 20 MG PO SCH (23:47)
[2019-11-25 06:18] LABS: ABS Basophils 0.1 10^3/ul (0-0.2); ABS Eosinophils 0.9 10^3/ul (0-0.6); ABS Lymphocytes 1.5 10^3/ul (1.0-4.8); ABS Monocytes 0.6 10^3/ul (0-0.8); ABS Neutrophils 5.2 10^3/ul (1.5-7.7); Eosinophil % 10.5 %; Hematocrit 30 % (35-47); Hemoglobin 9.9 g/dL (12.0-16.0); Lymphocyte % 17.9 %; Mean Corpuscular HGB Conc 34 g/dL (31-36); Mean Corpuscular Hemoglobin 29 pg (27-31); Mean Corpuscular Volume 87 fL (80-97); Mean Platelet Volume 7.2 fL (7.4-10.4); Platelet Count 375 10^3/uL (150-450); Red Blood Count 3.38 10^6 /uL (3.70-4.87); Red Cell Distribution Width 15 % (10-15); White Blood Count 8.3 10^3/uL (3.5-10.8)
[2019-11-25 06:36] LABS: BUN/Creatinine Ratio 11.9 (8-20); C Reactive Protein 21.42 mg/L (<8.01); EGFR African American 178.5 (>60); EGFR Non-African American 147.5 (>60); Magnesium 1.8 mg/dL (1.9-2.7); Potassium 4.2 mmol/L (3.5-5.0)
[2019-11-25] MEDS: buPROPion SR TAB.SR* 150 MG PO SCH ×2 (07:47→21:09)
[2019-11-25] MEDS: HYDROmorphone TAB* 4 MG PO PRN ×4 (07:47→21:06)
[2019-11-25] MEDS: Potassium Chlor TAB* 20 MEQ TAB.ER PO SCH ×2 (07:47→21:06)
[2019-11-25] MEDS: CMC:Budesonide CAP(NF) 3 MG PO SCH (07:48)
[2019-11-25] MEDS: CONJUGATED ESTROGENS 0.625 MG PO SCH ×2 (07:48→21:05)
[2019-11-25] MEDS: Baclofen TAB* 10 MG PO SCH (07:48)
[2019-11-25] MEDS: Docusate CAP* 100 MG PO SCH ×2 (07:49→21:09)
[2019-11-25] MEDS: Polyethylene Glycol 3350* 17 GM PACKET PO SCH (07:50)
[2019-11-25 09:56] LABS: Corrected Retic Count 1.6 % (0.5-1.5); Hematocrit for Retic CNT 30 % (35-47); Immature Retic Fraction 0.57; RBC Retic Count 3.42 10^6/uL (3.70-4.87)
[2019-11-25 10:58] LABS: Ferritin 163.8 ng/mL (11-307)
[2019-11-25] MEDS: Ascorbic Acid TAB* 500 MG PO SCH (11:37)
[2019-11-25] MEDS: traZODone TAB* 100 MG PO SCH (21:07)
[2019-11-25] MEDS: Pantoprazole TAB * 40 MG TAB PO SCH (21:09)
[2019-11-25] MEDS: MELATONIN 20 MG PO SCH (21:10)
[2019-11-26] MEDS: HYDROmorphone TAB* 4 MG PO PRN ×2 (03:13→07:41)
[2019-11-26 05:35] LABS: BUN/Creatinine Ratio 17.4 (8-20); Calcium 8.1 mg/dL (8.6-10.3); EGFR African American 160.7 (>60); EGFR Non-African American 132.8 (>60); Magnesium 1.8 mg/dL (1.9-2.7); Potassium 4.2 mmol/L (3.5-5.0)
[2019-11-26] MEDS: Polyethylene Glycol 3350* 17 GM PACKET PO SCH (07:39)
[2019-11-26] MEDS: Docusate CAP* 100 MG PO SCH (07:39)
[2019-11-26] MEDS: CONJUGATED ESTROGENS 0.625 MG PO SCH (07:41)
[2019-11-26] MEDS: buPROPion SR TAB.SR* 150 MG PO SCH (07:41)
[2019-11-26] MEDS: CMC:Budesonide CAP(NF) 3 MG PO SCH (07:41)
[2019-11-26] MEDS: Potassium Chlor TAB* 20 MEQ TAB.ER PO SCH (07:41)
[2019-11-26 11:36] VITALS: BP 139/76
[2019-11-26] MEDS: Ascorbic Acid TAB* 500 MG PO SCH (12:23)
--- NOTE | 2019-11-26 13:25 | DS ---
CC: Dr. Palma * DISCHARGE SUMMARY: DATE OF ADMISSION: 11/21/19 DATE OF DISCHARGE: 11/26/19 DISCHARGE DIAGNOSES: 1. Delirium, likely due to serotonin syndrome, interaction between desvenlafaxine and fentanyl. 2. Status post recent surgery, cervical decompression, fusion C2 to T3. 3. History of autoimmune hepatitis. 4. History of depression. 5. History of microscopic colitis. 6. History of lumbar radiculopathy. 7. History of a thyroid nodule, FNA showed colloid nodule. 8. History of iron-deficiency anemia. 9. History of migraine. 10. Chronic headache. 11. Hypokalemia. 12. Hypomagnesemia. 13. Abnormal thyroid functions, resolved. 14. Low prealbumin. 15. Paroxysmal atrial fibrillation, likely related to hypokalemia. HISTORY: Mikaela Gonsalez is a 73-year-old woman admitted with delirium 1 day after having been discharged from the hospital after surgery as noted above. Please see the dictated admission note for details of the present illness, past medical history, family history, social and personal history, review of systems , and physical examination. DIAGNOSTIC STUDIES/LAB DATA: CBC: WBC 10.2, H and H 10.7/32, MCV 87, PLT 415, 000. CBC prior to discharge on 11/25/19: WBC 8.3, H and H 9.9/30, MCV 87, PLT 375,000, retic count 2.4, index 1.1. INR 1.30. Chemistries: Sodium 140, potassium 2.3, chloride 92, CO2 35, BUN and creatinine 16/0.6, magnesium 1.8. Comprehensive metabolic panel was otherwise abnormal for AST 43. Troponin I was 0.03, repeated 0.01, 0.01. Total protein 6.0. TSH was 0.31, free T4 1.25. Repeated thyroid function tests on 11/23/19: TSH 0.89, free T4 1.16 ( slightly high), total T3 86 (low). CRP started at 180.92 on 11/22/19, came down to 21.42 on 11/25/19. Urinalysis: Tessy, cloudy, specific gravity 1.020, protein 1+, ketones 2+, otherwise unremarkable. Toxicology positive for opiates , barbiturates, benzodiazepines, and cannabinoids; these are all presumptive positive, final toxicology has not returned yet. Urine culture was unremarkable. 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 Cervical spine CT, thoracic spine CT on 11/22/19 showed postoperative changes and heterogeneous enlargement of the right lobe of the thyroid. Thoracic spine CT showed postoperative changes. Chest CT on 11/22/19 showed no evidence of pneumonia, emphysema depending on 2 mm pulmonary nodule in the peripheral lobes is unchanged. Enlarged right lobe of the thyroid noted. EKG on 11/21/19: Sinus rhythm, voltage is increased, otherwise no significant changes. EKG on 11/22/19 showed sinus tachycardia, prolonged QTc, changes may be due to difference in lead placement since previous EKG anteriorly. Transthoracic echocardiogram on 11/24/19 showed normal systolic function with EF 50% to 60%. Trace mitral and aortic regurgitation. Essentially normal. EEG on 11/22/19 was normal. CONSULTATIONS: Neurological consultation, Dr. Prater, 11/22/19, felt the patient had altered mental status including hallucinations, agitation, shaking, and staring spells. Initially, Keppra was ordered. He did not recommend continuing this long- term. He felt that underlying psychological issues with a combination of medications contributed to her change in mental status. When he saw her, she looked better and he agreed with simplifying the medications with possible serotonin syndrome. He did not feel she needed a spinal tap. Consultation, Neurosurgery, 11/23/19, Dr. Palma felt that she was improved. She was happy and grateful with the results of the operation. He recommended nutrition status evaluation. Recommended seeing the patient in approximately 2 weeks with new x-rays. HOSPITAL COURSE: The patient was initially seen in the emergency room, felt to be delirious. She was hallucinating. She was noted to be hypomagnesemic, hypokalemic. She did not want to stay initially, but was convinced to stay. On admission, she received 1 dose of risperidone, Seroquel was ordered. Her hypokalemia, hypomagnesemia were repleted. Her troponins were trended and came down. Abnormal thyroid tests were repeated and were improved. She was started on sequential compression devices for DVT prophylaxis. She was felt to be dehydrated, placed on IV fluids. Her [place] collar was continued. On the morning following admission, there was a CAT call. She got herself out of bed and walked to the bathroom. Afterwards, they found her sitting on the edge of the bed staring into space and fell over sideways in bed. She was lying on the right side with arms and legs shaking, which lasted about 30 seconds and she seemed unresponsive. Dr. Parrish gomez rubbed the patient and she grabbed her wrist with her left hand scratching it. She had a couple of other episodes of short-lived shaking occasionally just left upper extremity and other times both arms and legs. She was very agitated and not allowing for labs to be drawn easily. She did not speak. After about 10 to 15 minutes, the patient did start talking some clutching her chest. She answered yes to having chest pain ( unclear from the [place] collar, she kept grabbing at the lower portion of the collar). At that point, the EEG and CT were ordered. When I saw her, she had episodes of staring, tonic-clonic movements of her left shoulder. During the previous night, she had had episodes of yelling and received Haldol. Her pupils were dilated. She did not have ocular clonus. Her chest was clear. Heart was regular. She had mild lower abdominal tenderness, which she said was always in the same spot mostly on the right. Extremities were without calf tenderness or edema. She was able to move all her extremities. I felt that she likely had serotonin syndrome due to interaction of fentanyl and desvenlafaxine. These were discontinued. Her elevated CRP was noted felt to be due to recent surgery. The following day, she was alert, pleasant, able to describe her paranoid episode in which she thought her ex- was the enemy , people were bringing bottles with liquid into her home forcing her to drink them. She called them entities. She was complaining of her colitis acting up. Budesonide was ordered for that and increased from 6 to 9 mg. She had persistent hypokalemia during her hospitalization and required large doses of potassium replacement. She received some magnesium as well. Her magnesium was borderline low. Her pain control appeared to be adequate. Case was discussed both with her and her son on the phone. On the night of 11/24/19, she had runs of atrial fibrillation nonsustained. This continued until her potassium was repleted. The patient also complained about her [place] collar being uncomfortable because there were pads missing. She received new [place] collar on 11/26/19. By 11/25/19, she was feeling good except had some right hip pain on awakening, which felt better as she moved about. She was able to get up and walk around. She had intermittent diarrhea. Her arrhythmia had improved. At the time of discharge on 11/26/19, she is up walking about. She had not slept well due to noisy roommates. She was anxious to go home. She is going home in improved condition. I spoke with her on the phone. He feels able to take her home in his car. The patient would like to see Dr. Palma prior to her discharge and I have left him a message to see her when he gets out of surgery. She is to be followed by myself in 4 to 7 days, Dr. Palma in 1 to 2 weeks. She should also have visiting nurse service. DISCHARGE MEDICATIONS: Her medications at the time of discharge are as follows: 1. Premarin 1.25 mg twice a day. 2. Bupropion 150 mg twice a day. 3. Chlorzoxazone 750 mg t.i.d. as needed for muscle spasm. 4. Fioricet 1 to 2 tabs as needed for headache. 5. Vitamin C 1000 mg once a day. 6. Trazodone 200 to 400 mg at bedtime. 7. Maxalt 10 mg as needed for migraine. 8. 1 p.r.n. abdominal cramping. 9. Pantoprazole 40 mg daily. 10. MultiVites 1 daily. 11. Melatonin 20 mg at bedtime. 12. Budesonide 6 to 9 mg daily. 13. Vitamin D 2000 units daily. 14. Tylenol as needed for headache. The patient also mentions that she sometimes takes an antihistamine at home. I suggested that she not take Benadryl and try Zyrtec instead as she felt that Lamar and Claritin were ineffective. [id number]/[facility] #: [id number] [facility]
== END 2019-11-26 14:45 | disposition home or self-care (01) | DRG 948 ==
LOC: ED 17:08 → MEDTELE 22:15 → OBSVTOIN 22:30
PROVIDERS: ADMIT Internal Medicine; ATTEND Internal Medicine Geriatric Medicine
PROC: 4A00X4Z Measurement of Central Nervous Electrical Activity, External Approach (ICD-10-PCS; principal; 2019-11-22)
DX: R41.0 Disorientation, unspecified (principal); G43.909 Migraine, unspecified, not intractable, without status migrainosus; K58.9 Irritable bowel syndrome, unspecified; K21.9 Gastro-esophageal reflux disease without esophagitis; G89.4 Chronic pain syndrome; F32.9 Major depressive disorder, single episode, unspecified; M32.9 Systemic lupus erythematosus, unspecified; Z98.1 Arthrodesis status; Z88.0 Allergy status to penicillin; Z88.5 Allergy status to narcotic agent; Z88.2 Allergy status to sulfonamides; Z88.8 Allergy status to other drugs, medicaments and biological substances; Z87.891 Personal history of nicotine dependence; I48.91 Unspecified atrial fibrillation; K52.839 Microscopic colitis, unspecified; D50.9 Iron deficiency anemia, unspecified; M19.90 Unspecified osteoarthritis, unspecified site; M06.9 Rheumatoid arthritis, unspecified; J43.9 Emphysema, unspecified; E78.00 Pure hypercholesterolemia, unspecified; E87.6 Hypokalemia; E83.42 Hypomagnesemia; T50.995A Adverse effect of other drugs, medicaments and biological substances, initial encounter; Y92.9 Unspecified place or not applicable
CPT/HCPCS: 36415; 70450; 71260; 72126; 72129; 80048; 80053; 80307; 81003; 81015; 82728; 83735; 84100; 84134; 84439; 84443; 84479; 84484; 85025; 85045; 85610; 85652; 86140; 87086; 93005; 93306; 95819; 96365; 96375; 99285; A9270-GY; G0480; J1630; J1953; J2060; J3411; J3475; J3480; Q9967

== ENCOUNTER 2024-08-27 22:52 | Observation (INO) ==
[2024-08-27] MEDS: Morphine 4 MG/ML VIAL (1 ml) IV ONE (23:20)
[2024-08-27] MEDS: HYDROmorphone 1 MG/1 ML SYRINGE IV ONE (23:58)
[2024-08-28 01:01] LABS: ABS Lymphocytes 0.6 10^3/uL (1.0-4.8); ABS Neutrophils 11.1 10^3/uL (1.5-7.6); ABS Nucleated RBC 0.01 10^3/ul; Eosinophil % 0.1 %; Hematocrit 34.3 % (35-45); Hemoglobin 11.3 g/dL (11.5-14.3); Lymphocyte % 4.6 %; Mean Corpuscular Hemoglobin 28.8 pg (27-33); Mean Corpuscular Hgb Conc 32.9 g/dL (31-36); Mean Corpuscular Volume 87.6 fL (80-97); Mean Platelet Volume 8.9 fL (7.5-11.2); Nucleated Red Blood Cells % 0.1 %/100WBC (0.0-0.8); Platelet Count 158 10^3/uL (150-450); Red Blood Count 3.92 10^6/uL (3.63-4.92); Red Cell Distribution Width 13.6 % (12-17); White Blood Count 12.7 10^3/uL (3.8-11.8)
[2024-08-28 01:02] LABS: Activated Partial Thrombo Time 29.7 seconds (26.0-38.0); INR 1.13 (0.85-1.14)
[2024-08-28 01:28] LABS: ALT 20 U/L (7-52); AST 23 U/L (13-39); Albumin 3.8 g/dL (3.2-5.2); Alkaline Phosphatase 46 U/L (35-149); Anion Gap 10 mmol/L (2-16); Blood Urea Nitrogen 19 mg/dL (6-24); CO2 Carbon Dioxide 23 mmol/L (22-32); Calcium 8.5 mg/dL (8.6-10.3); Chloride 109 mmol/L (101-111); Creatinine, Serum 0.77 mg/dL (0.51-0.95); Globulin 1.9 g/dL (2-4); Glucose 117 mg/dL (70-100); Potassium 3.6 mmol/L (3.5-5.0); Sodium 142 mmol/L (135-145); Total Bilirubin 0.4 mg/dL (0.2-1.0); Total Protein 5.7 g/dL (6.4-8.9); eGFR CKD-EPI 78.4 (>60)
[2024-08-28] MEDS: HYDROmorphone 1 MG/1 ML SYRINGE IV ONE ×3 (02:07→09:14)
[2024-08-28] MEDS: SUMAtriptan Subcut 6 MG/0.5 ML VIAL SUBCUT ONE (03:02)
[2024-08-28] MEDS: Ondansetron 4 mg VIAL 2 MG/ML 2 ml VIAL IV ONE (07:52)
[2024-08-28] MEDS: diazePAM INJ CARPUJECT 5 MG/ML SYRINGE IV ONE (09:14)
[2024-08-28] MEDS ORDERED: NF: IPRATROPIUM BR (NF)0.06% NASAL 1 SPRAY BTL BOTH NARES PRN (11:11)
[2024-08-28 11:57] LABS: Alcohol, S < 13 mg/dL (<13)
[2024-08-28] MEDS: Acetaminophen IV 1 GM/100ML 1,000 MG/100 ML BAG IV SCH (13:26)
[2024-08-28] MEDS: HYDROmorphone 1 MG/1 ML SYRINGE IV SLOW PU PRN ×2 (13:37→21:25)
[2024-08-28] MEDS: Metoclopramide 5 MG/ML VIAL (10 mg) IV SLOW PU ONE (14:38)
[2024-08-28] MEDS: Acetaminophen IV 1 GM/100ML 500 MG/50 ML BAG IV SCH (18:35)
[2024-08-28] MEDS: CHLORZOXAZONE 250 MG PO SCH (18:51)
[2024-08-28] MEDS: Ondansetron ODT 4 mg TAB 4 MG TAB PO PRN (20:08)
[2024-08-28] MEDS: Heparin 5000 UNITS/ML 1 mL VIAL SUBCUT SCH (21:13)
[2024-08-29] MEDS: Acetaminophen IV 1 GM/100ML 500 MG/50 ML BAG IV SCH ×2 (00:03→06:34)
[2024-08-29] MEDS ORDERED: HYDROmorphone 1 MG/1 ML SYRINGE IV SLOW PU PRN (05:08)
[2024-08-29] MEDS ORDERED: Acetaminophen IV 1 GM/100ML 500 MG/50 ML BAG IV SCH (06:30)
[2024-08-29 07:21] LABS: ABS Lymphocytes 0.9 10^3/uL (1.0-4.8); ABS Monocytes 0.9 10^3/uL (0.0-0.9); ABS Neutrophils 6.3 10^3/uL (1.5-7.6); ABS Nucleated RBC 0.01 10^3/ul; Eosinophil % 0.2 %; Hematocrit 33.7 % (35-45); Hemoglobin 11.3 g/dL (11.5-14.3); Lymphocyte % 11.3 %; Mean Corpuscular Hemoglobin 29.5 pg (27-33); Mean Corpuscular Hgb Conc 33.6 g/dL (31-36); Mean Corpuscular Volume 87.7 fL (80-97); Mean Platelet Volume 8.6 fL (7.5-11.2); Nucleated Red Blood Cells % 0.1 %/100WBC (0.0-0.8); Platelet Count 136 10^3/uL (150-450); Red Blood Count 3.85 10^6/uL (3.63-4.92); Red Cell Distribution Width 13.9 % (12-17); White Blood Count 8.2 10^3/uL (3.8-11.8)
[2024-08-29] MEDS: Ondansetron 4 mg VIAL 2 MG/ML 2 ml VIAL IV ONE (07:59)
[2024-08-29] MEDS: HYDROmorphone 1 MG/1 ML SYRINGE IV SLOW PU ONE (08:00)
[2024-08-29 08:02] LABS: Albumin 3.9 g/dL (3.2-5.2); Calcium 8.4 mg/dL (8.6-10.3); Creatinine, Serum 0.6 mg/dL (0.51-0.95); Magnesium 1.8 mg/dL (1.9-2.7); Potassium 3.2 mmol/L (3.5-5.0); Total Bilirubin 0.6 mg/dL (0.2-1.0); Total Protein 5.9 g/dL (6.4-8.9); eGFR CKD-EPI 91.2 (>60)
[2024-08-29] MEDS: CMCS: Budesonide 3 mg CAP (NF) PO SCH (08:26)
[2024-08-29] MEDS: Potassium Chlor 20 meq TAB.ER PO ONE (09:21)
[2024-08-29 11:12] LABS: Urine Benzodiazepine Screen Presumptive Positive (None Detect); Urine Cannabinoids Screen Presumptive Positive (None Detect); Urine Opiates Screen Presumptive Positive (None Detect)
[2024-08-29] MEDS: HYDROmorphone 1 MG/1 ML SYRINGE IV SLOW PU PRN (13:19)
[2024-08-29] MEDS: Enoxaparin 40 MG/0.4 ML SYR SUBCUT SCH (17:38)
[2024-08-30] MEDS: HYDROmorphone 1 MG/1 ML SYRINGE IV SLOW PU PRN (03:53)
[2024-08-30 07:42] LABS: Anion Gap 9 mmol/L (2-16); Blood Urea Nitrogen 13 mg/dL (6-24); CO2 Carbon Dioxide 28 mmol/L (22-32); Calcium 8.6 mg/dL (8.6-10.3); Chloride 101 mmol/L (101-111); Creatinine, Serum 0.56 mg/dL (0.51-0.95); Glucose 118 mg/dL (70-100); Magnesium 2.2 mg/dL (1.9-2.7); Sodium 138 mmol/L (135-145); eGFR CKD-EPI 92.8 (>60)
[2024-08-30] MEDS ORDERED: Senna TAB 8.6 mg TAB PO PRN (17:29)
[2024-08-30] MEDS: Potassium Chlor 20 meq TAB.ER PO ONE (18:27)
[2024-08-30] MEDS: Polyethylene Glycol 3350 17 GM PACKET PO SCH (18:30)
[2024-08-31 09:29] LABS: Hematocrit 37.7 % (35-45); Hemoglobin 12.3 g/dL (11.5-14.3)
[2024-08-31 10:03] LABS: Calcium 8.3 mg/dL (8.6-10.3); Creatinine, Serum 0.53 mg/dL (0.51-0.95); Potassium 3.7 mmol/L (3.5-5.0)
[2024-08-31 10:38] VITALS: BP 152/76
== END 2024-08-31 13:45 | disposition home health service (06) ==
LOC: EDHOLD 22:52 → ED 22:52 → SSU 08-28 20:06 → MED 08-29 23:54
PROVIDERS: ADMIT Internal Medicine; ATTEND Internal Medicine

== ENCOUNTER 2024-09-15 11:07 | Inpatient (IN) ==
[2024-09-15] MEDS: Morphine 4 MG/ML VIAL (1 ml) IV ONE ×2 (11:32→11:59)
[2024-09-15] MEDS: NS 0.9% 1000 ml BAG 1,000 ML IV ONE (11:32)
[2024-09-15] MEDS: Ondansetron 4 mg VIAL 2 MG/ML 2 ml VIAL IV ONE (11:32)
[2024-09-15 11:53] LABS: Hematocrit 42.7 % (35-45); Hemoglobin 14.6 g/dL (11.5-14.3); Mean Corpuscular Hemoglobin 30.1 pg (27-33); Mean Corpuscular Hgb Conc 34.1 g/dL (31-36); Red Blood Count 4.85 10^6/uL (3.63-4.92); Red Cell Distribution Width 14.7 % (12-17); White Blood Count 6.8 10^3/uL (3.8-11.8)
[2024-09-15 12:06] LABS: INR 1.1 (0.85-1.14)
[2024-09-15 12:22] LABS: ABS Lymphocytes 0.6 10^3/uL (1.0-4.8); ABS Monocytes 0.5 10^3/uL (0.0-0.9); ABS Neutrophils 5.7 10^3/uL (1.5-7.6); ABS Nucleated RBC 0.01 10^3/ul; Eosinophil % 0.3 %; Lymphocyte % 8.4 %; Mean Platelet Volume 8.3 fL (7.5-11.2); Nucleated Red Blood Cells % 0.1 %/100WBC (0.0-0.8); Platelet Count 408 10^3/uL (150-450)
[2024-09-15 12:33] LABS: ALT 28 U/L (7-52); Albumin 4.2 g/dL (3.2-5.2); Albumin/Globulin Ratio 1.8 (1-3); Alkaline Phosphatase 194 U/L (35-149); Blood Urea Nitrogen 16 mg/dL (6-24); CO2 Carbon Dioxide 28 mmol/L (22-32); Calcium 9.7 mg/dL (8.6-10.3); Creatinine, Serum 0.79 mg/dL (0.51-0.95); Globulin 2.4 g/dL (2-4); Glucose 125 mg/dL (70-100); Total Bilirubin 0.6 mg/dL (0.2-1.0); Total Protein 6.6 g/dL (6.4-8.9)
[2024-09-15] MEDS: HYDROmorphone 1 MG/1 ML SYRINGE IV ONE ×2 (13:02→14:39)
[2024-09-15] MEDS ORDERED: NF:IPRATROPIUM BR (NF)0.06% NASAL 1 SPRAY BTL BOTH NARES PRN (15:31)
[2024-09-15] MEDS ORDERED: Senna TAB 8.6 mg TAB PO PRN (15:31)
[2024-09-15] MEDS ORDERED: [UNRECOGNIZED DRUG - REMARK] BOTH EYES PRN (15:31)
[2024-09-15] MEDS ORDERED: Butalb/Acetamin/Caff TAB 325-50-40MG PO PRN (15:31)
[2024-09-15] MEDS ORDERED: Morphine 2 MG/ML SYRINGE IV PRN (15:33)
[2024-09-15] MEDS: Lactated Ringers 1000 ml BAG 1,000 ML IV SCH (16:09)
[2024-09-15] MEDS: Enoxaparin 40 MG/0.4 ML SYR SUBCUT SCH (16:10)
[2024-09-15] MEDS: HYDROmorphone 1 MG/1 ML SYRINGE IV PRN (17:27)
[2024-09-15] MEDS: Butalb/Acetamin/Caff TAB 325-50-40MG ONE (18:32)
[2024-09-15] MEDS: Conjugated Estrogens 0.625 TAB PO SCH (21:10)
[2024-09-15] MEDS: Morphine 2 MG/ML SYRINGE IV PRN (21:17)
[2024-09-15] MEDS: [UNRECOGNIZED DRUG - REMARK] PO SCH (21:29)
[2024-09-15] MEDS ORDERED: Calcium Carb (TUMS) 500 mg CHEW TAB PO PRN (22:09)
[2024-09-16] MEDS ORDERED: Naloxone Nasal Spray 4 MG/0.1 ML NASAL.SPR INTRANASAL PRN (05:21)
[2024-09-16] MEDS: fentaNYL 100 mcg/2 ml 50 MCG/ML VIAL IV SLOW PU PRN (05:40)
[2024-09-16] MEDS: BUDESONIDE 3 MG PO SCH (08:43)
[2024-09-16] MEDS: HYDROmorphone 1 MG/1 ML SYRINGE IV PRN (08:44)
[2024-09-16 08:52] LABS: ABS Basophils 0.1 10^3/uL (0.0-0.1); ABS Eosinophils 0.1 10^3/uL (0.0-0.5); ABS Lymphocytes 0.9 10^3/uL (1.0-4.8); ABS Monocytes 0.7 10^3/uL (0.0-0.9); ABS Nucleated RBC 0.01 10^3/ul; Eosinophil % 2.1 %; Hemoglobin 13.2 g/dL (11.5-14.3); Lymphocyte % 17.9 %; Mean Corpuscular Hemoglobin 29.5 pg (27-33); Mean Corpuscular Hgb Conc 32.9 g/dL (31-36); Mean Corpuscular Volume 89.5 fL (80-97); Mean Platelet Volume 8.9 fL (7.5-11.2); Nucleated Red Blood Cells % 0.1 %/100WBC (0.0-0.8); Platelet Count 265 10^3/uL (150-450); Red Blood Count 4.46 10^6/uL (3.63-4.92); Red Cell Distribution Width 14.6 % (12-17); White Blood Count 4.7 10^3/uL (3.8-11.8)
[2024-09-16 09:12] LABS: Albumin 3.6 g/dL (3.2-5.2); Albumin/Globulin Ratio 1.6 (1-3); Calcium 8.4 mg/dL (8.6-10.3); Creatinine, Serum 0.62 mg/dL (0.51-0.95); Globulin 2.2 g/dL (2-4); Magnesium 1.7 mg/dL (1.9-2.7); Potassium 3.4 mmol/L (3.5-5.0); Total Bilirubin 0.5 mg/dL (0.2-1.0); Total Protein 5.8 g/dL (6.4-8.9); eGFR CKD-EPI 90.5 (>60)
[2024-09-16] MEDS: Polyethylene Glycol 3350 17 GM PACKET PO SCH ×2 (09:50→22:13)
[2024-09-16] MEDS: Butalb/Acetamin/Caff TAB 325-50-40MG PO PRN (10:04)
[2024-09-16] MEDS: Magnesium Sulfate 2 gm BAG 2 GM/50 ML BAG IVPB ONE (10:07)
[2024-09-16] MEDS: Potassium Chlor 20 meq TAB.ER PO ONE (10:07)
[2024-09-16] MEDS ORDERED: Ondansetron 4 mg VIAL 2 MG/ML 2 ml VIAL IV PRN (11:55)
[2024-09-17 06:17] LABS: ABS Eosinophils 0.1 10^3/uL (0.0-0.5); ABS Lymphocytes 0.7 10^3/uL (1.0-4.8); ABS Monocytes 0.7 10^3/uL (0.0-0.9); ABS Neutrophils 3.2 10^3/uL (1.5-7.6); Eosinophil % 1.5 %; Hematocrit 36.4 % (35-45); Hemoglobin 11.9 g/dL (11.5-14.3); Lymphocyte % 14.7 %; Mean Corpuscular Hemoglobin 29.1 pg (27-33); Mean Corpuscular Hgb Conc 32.8 g/dL (31-36); Mean Corpuscular Volume 88.8 fL (80-97); Mean Platelet Volume 8.7 fL (7.5-11.2); Nucleated Red Blood Cells % 0.1 %/100WBC (0.0-0.8); Platelet Count 271 10^3/uL (150-450); Red Cell Distribution Width 14.7 % (12-17); White Blood Count 4.7 10^3/uL (3.8-11.8)
[2024-09-17 07:10] LABS: Calcium 8.2 mg/dL (8.6-10.3); Creatinine, Serum 0.72 mg/dL (0.51-0.95); Magnesium 1.9 mg/dL (1.9-2.7); Potassium 3.7 mmol/L (3.5-5.0)
[2024-09-17] MEDS: Magnesium Sulfate 2 gm BAG 2 GM/50 ML BAG IVPB ONE (09:08)
[2024-09-17] MEDS: Potassium Chlor 20 meq TAB.ER PO ONE (09:41)
[2024-09-17] MEDS: Senna TAB 8.6 mg TAB PO SCH (09:41)
[2024-09-17 17:57] VITALS: BP 138/93
[2024-09-19 22:44] LABS: Anion Gap 9 mmol/L (2-16); Chloride 98 mmol/L (101-111); Sodium 135 mmol/L (135-145)
== END 2024-09-17 18:22 | disposition home or self-care (01) | DRG 552 ==
LOC: EDHOLD 11:07 → ED 11:07 → SUATTDRO 14:53 → SSU 16:15
PROVIDERS: ADMIT Student in an Organized Health Care Education/Training Program; ATTEND Student in an Organized Health Care Education/Training Program

== ENCOUNTER 2024-10-17 07:40 | Observation (INO) ==
[2024-10-17] MEDS: Ondansetron 4 mg VIAL 2 MG/ML 2 ml VIAL IV ONE (08:02)
[2024-10-17] MEDS: Morphine 4 MG/ML VIAL (1 ml) IV ONE (08:02)
[2024-10-17 08:10] LABS: ABS Basophils 0.1 10^3/uL (0.0-0.1); ABS Eosinophils 0.1 10^3/uL (0.0-0.5); ABS Lymphocytes 1.1 10^3/uL (1.0-4.8); ABS Monocytes 0.5 10^3/uL (0.0-0.9); ABS Neutrophils 3.7 10^3/uL (1.5-7.6); Eosinophil % 1.1 %; Hematocrit 32.9 % (35-45); Hemoglobin 11.1 g/dL (11.5-14.3); Lymphocyte % 19.8 %; Mean Corpuscular Hemoglobin 29.7 pg (27-33); Mean Corpuscular Hgb Conc 33.6 g/dL (31-36); Mean Corpuscular Volume 88.3 fL (80-97); Nucleated Red Blood Cells % 0.1 %/100WBC (0.0-0.8); Platelet Count 358 10^3/uL (150-450); Red Blood Count 3.73 10^6/uL (3.63-4.92); Red Cell Distribution Width 14.5 % (12-17); White Blood Count 5.4 10^3/uL (3.8-11.8)
[2024-10-17] MEDS: Acetaminophen IV 1 GM/100ML 1,000 MG/100 ML BAG IV ONE (08:59)
[2024-10-17 09:11] LABS: Albumin 3.6 g/dL (3.2-5.2); Albumin/Globulin Ratio 1.6 (1-3); Calcium 8.7 mg/dL (8.6-10.3); Creatinine, Serum 0.51 mg/dL (0.51-0.95); Globulin 2.2 g/dL (2-4); Total Bilirubin 0.5 mg/dL (0.2-1.0); Total Protein 5.8 g/dL (6.4-8.9); eGFR CKD-EPI 94.9 (>60)
[2024-10-17] MEDS: Iohexol 350 (CONTRAST) 500 ML MDV IV ONE (09:54)
[2024-10-17] MEDS ORDERED: Morphine 2 MG/ML SYRINGE IV PRN (14:58)
[2024-10-17] MEDS ORDERED: Lidocaine PATCH 5% PATCH TRANSDERM PRN (16:16)
[2024-10-17] MEDS ORDERED: Senna TAB 8.6 mg TAB PO PRN (17:02)
[2024-10-17] MEDS: Lidocaine PATCH 5% PATCH TRANSDERM SCH (17:45)
[2024-10-17 17:50] LABS: Folate 10.47 ng/mL (5.90-24.80)
[2024-10-17] MEDS ORDERED: Naloxone Nasal Spray 4 MG/0.1 ML NASAL.SPR INTRANASAL PRN (18:16)
[2024-10-17] MEDS: Enoxaparin 40 MG/0.4 ML SYR SUBCUT SCH (19:25)
[2024-10-17] MEDS: Butalb/Acetamin/Caff TAB 325-50-40MG PO PRN (20:39)
[2024-10-18] MEDS: Calcium Carb (TUMS) 500 mg CHEW TAB PO PRN (04:57)
[2024-10-18] MEDS: Calcium Carb (TUMS) 500 mg CHEW TAB ONE (05:01)
[2024-10-18 07:04] LABS: ABS Basophils 0.1 10^3/uL (0.0-0.1); ABS Eosinophils 0.2 10^3/uL (0.0-0.5); ABS Monocytes 0.8 10^3/uL (0.0-0.9); ABS Neutrophils 3.7 10^3/uL (1.5-7.6); Eosinophil % 3.9 %; Lymphocyte % 16.5 %; Mean Corpuscular Hgb Conc 33.5 g/dL (31-36); Mean Corpuscular Volume 89.7 fL (80-97); Mean Platelet Volume 8.1 fL (7.5-11.2); Platelet Count 323 10^3/uL (150-450); Red Blood Count 3.68 10^6/uL (3.63-4.92); Red Cell Distribution Width 14.5 % (12-17); White Blood Count 5.8 10^3/uL (3.8-11.8)
[2024-10-18 08:05] LABS: Calcium 8.9 mg/dL (8.6-10.3); Creatinine, Serum 0.48 mg/dL (0.51-0.95); Potassium 4.1 mmol/L (3.5-5.0); eGFR CKD-EPI 96.3 (>60)
[2024-10-18] MEDS: CMC:Budesonide 3 mg CAP (NF) PO SCH (08:46)
[2024-10-18 09:57] VITALS: BP 140/62
[2024-10-23 16:00] LABS: Pyridoxal 5-Phosphate (PLP), P 6 mcg/L (5-50)
== END 2024-10-18 15:40 | disposition home or self-care (01) ==
LOC: EDHOLD 07:40 → ED 07:40 → MED 14:26
PROVIDERS: ADMIT Internal Medicine; ATTEND Internal Medicine

== ENCOUNTER 2024-10-23 19:34 | Inpatient (IN) ==
[2024-10-23] MEDS: HYDROmorphone 1 MG/1 ML SYRINGE IM ONE (19:54)
[2024-10-23 20:15] LABS: ABS Basophils 0.1 10^3/uL (0.0-0.1); ABS Lymphocytes 1.2 10^3/uL (1.0-4.8); ABS Monocytes 0.9 10^3/uL (0.0-0.9); ABS Neutrophils 9.4 10^3/uL (1.5-7.6); ABS Nucleated RBC 0.01 10^3/ul; Hematocrit 39.2 % (35-45); Hemoglobin 12.6 g/dL (11.5-14.3); Lymphocyte % 10.4 %; Mean Corpuscular Hemoglobin 28.7 pg (27-33); Mean Corpuscular Hgb Conc 32.2 g/dL (31-36); Mean Corpuscular Volume 89.1 fL (80-97); Mean Platelet Volume 8.4 fL (7.5-11.2); Nucleated Red Blood Cells % 0.1 %/100WBC (0.0-0.8); Platelet Count 424 10^3/uL (150-450); Red Cell Distribution Width 14.4 % (12-17); White Blood Count 11.6 10^3/uL (3.8-11.8)
[2024-10-23 20:39] LABS: Activated Partial Thrombo Time 30.9 seconds (26.0-38.0); INR 0.99 (0.85-1.14)
[2024-10-23 20:45] LABS: Albumin 3.9 g/dL (3.5-5.7); Albumin/Globulin Ratio 1.7 (1-3); C Reactive Protein 8.29 mg/L (<8.01); Calcium 9.4 mg/dL (8.6-10.3); Creatinine, Serum 0.61 mg/dL (0.51-0.95); Globulin 2.3 g/dL (2-4); Potassium 3.4 mmol/L (3.5-5.0); Total Bilirubin 0.5 mg/dL (0.2-1.0); Total Protein 6.2 g/dL (6.4-8.9); eGFR CKD-EPI 90.9 (>60)
[2024-10-23] MEDS: Haloperidol 5 mg/ml SDV IV/IM 5 MG/ML AMP IV SLOW PU ONE (20:47)
[2024-10-23] MEDS: HYDROmorphone 1 MG/1 ML SYRINGE IV ONE (20:49)
[2024-10-23] MEDS: LACTATED RINGERS SEPSIS IV ONE (21:33)
[2024-10-23 21:44] LABS: High Sensitivity Troponin 1 Hr 7 pg/mL (<15)
[2024-10-24] MEDS: HYDROmorphone 1 MG/1 ML SYRINGE IV ONE (01:35)
[2024-10-24] MEDS: Haloperidol 5 mg/ml SDV IV/IM 5 MG/ML AMP IV SLOW PU ONE ×2 (01:41→05:12)
[2024-10-24] MEDS: Lactated Ringers 1000 ml BAG 1,000 ML IV SCH ×2 (02:30→07:33)
[2024-10-24 02:35] LABS: Magnesium 1.8 mg/dL (1.9-2.7)
[2024-10-24 02:51] LABS: TSH Ultra Thyroid Stim Horm 2.66 mcIU/mL (0.34-5.60)
[2024-10-24] MEDS: Potassium Chlor 20 meq TAB.ER PO ONE ×2 (02:52→08:28)
[2024-10-24] MEDS: Morphine 2 MG/ML SYRINGE IV PRN (03:59)
[2024-10-24] MEDS: Magnesium Sulfate 2 gm BAG 2 GM/50 ML BAG IVPB ONE (06:09)
[2024-10-24] MEDS: Enoxaparin 30 MG/0.3 ML SYR SUBCUT SCH (06:15)
[2024-10-24 06:22] LABS: ABS Eosinophils 0.1 10^3/uL (0.0-0.5); ABS Lymphocytes 1.3 10^3/uL (1.0-4.8); ABS Monocytes 0.5 10^3/uL (0.0-0.9); ABS Neutrophils 6.3 10^3/uL (1.5-7.6); Eosinophil % 0.8 %; Hematocrit 36.6 % (35-45); Hemoglobin 11.9 g/dL (11.5-14.3); Lymphocyte % 15.9 %; Mean Corpuscular Hemoglobin 28.9 pg (27-33); Mean Corpuscular Hgb Conc 32.4 g/dL (31-36); Mean Corpuscular Volume 89.3 fL (80-97); Mean Platelet Volume 8.2 fL (7.5-11.2); Platelet Count 333 10^3/uL (150-450); Red Cell Distribution Width 14.3 % (12-17); White Blood Count 8.2 10^3/uL (3.8-11.8)
[2024-10-24 07:07] LABS: Calcium 8.2 mg/dL (8.6-10.3); Creatinine, Serum 0.64 mg/dL (0.51-0.95); Potassium 3.4 mmol/L (3.5-5.0); eGFR CKD-EPI 89.8 (>60)
[2024-10-24 07:41] LABS: Magnesium 1.6 mg/dL (1.9-2.7)
[2024-10-24] MEDS: HYDROmorphone 1 MG/1 ML SYRINGE IV SLOW PU PRN (08:23)
[2024-10-24 11:45] LABS: Urine Appearance Clear; Urine Bilirubin Negative (Negative); Urine Blood Negative (Negative); Urine Color Light-Yellow; Urine Glucose Negative (Negative); Urine Ketones Negative (Negative); Urine Nitrite Negative (Negative); Urine Protein Negative (Negative); Urine Specific Gravity 1.012 (1.002-1.030); Urine Urobilinogen Negative (Negative)
[2024-10-24] MEDS: cefTRIAXone 1 gm/50 mL D5W 1 GM/50 ML BAG IV ONE (14:16)
[2024-10-24] MEDS ORDERED: Naloxone 0.4 mg VIAL 0.4 mg/ml 1 ml VIAL IV PUSH PRN (16:56)
[2024-10-24 17:33] LABS: Vitamin D Total 25(OH) 37.6 ng/mL (20-50)
[2024-10-24] MEDS: Lidocaine PATCH 5% PATCH TRANSDERM SCH (19:49)
[2024-10-24] MEDS: Senna TAB 8.6 mg TAB PO SCH (20:29)
[2024-10-24] MEDS: Butalb/Acetamin/Caff TAB 325-50-40MG PO PRN (22:06)
[2024-10-25 06:58] LABS: ABS Basophils 0.1 10^3/uL (0.0-0.1); ABS Eosinophils 0.2 10^3/uL (0.0-0.5); ABS Lymphocytes 1.3 10^3/uL (1.0-4.8); ABS Neutrophils 4.6 10^3/uL (1.5-7.6); Eosinophil % 2.8 %; Hematocrit 33.7 % (35-45); Hemoglobin 11.2 g/dL (11.5-14.3); Lymphocyte % 18.1 %; Mean Corpuscular Hemoglobin 29.7 pg (27-33); Mean Corpuscular Hgb Conc 33.4 g/dL (31-36); Mean Corpuscular Volume 89.1 fL (80-97); Mean Platelet Volume 8.5 fL (7.5-11.2); Platelet Count 333 10^3/uL (150-450); Red Blood Count 3.78 10^6/uL (3.63-4.92); Red Cell Distribution Width 14.1 % (12-17); White Blood Count 7.2 10^3/uL (3.8-11.8)
[2024-10-25 07:44] LABS: Calcium 8.3 mg/dL (8.6-10.3); Creatinine, Serum 0.54 mg/dL (0.51-0.95); Potassium 4.5 mmol/L (3.5-5.0); eGFR CKD-EPI 93.6 (>60)
[2024-10-25] MEDS: CMCS: Budesonide 3 mg CAP (NF) PO SCH (08:12)
[2024-10-25 08:31] LABS: Albumin 3.2 g/dL (3.5-5.7); Albumin/Globulin Ratio 1.5 (1-3); Globulin 2.2 g/dL (2-4); Phosphorus 4.2 mg/dL (2.5-5.0); Total Bilirubin 0.2 mg/dL (0.2-1.0); Total Protein 5.4 g/dL (6.4-8.9)
[2024-10-25] MEDS ORDERED: Polyethylene Glycol 3350 17 GM PACKET PO PRN ×2 (09:52→10:16)
[2024-10-25] MEDS: HYDROmorphone 1 MG/1 ML SYRINGE IV SLOW PU PRN (10:49)
[2024-10-25] MEDS: Dextran 70/Hypromellose Tears Eye Drops 15 ml BTL (for Artificials Tears) BOTH EYES PRN (18:22)
[2024-10-25] MEDS ORDERED: Polyethylene Glycol 3350 17 GM PACKET PO SCH (21:00)
[2024-10-27] MEDS: HYDROmorphone 0.5 MG/0.5 ML SYRINGE IV SLOW PU PRN (03:02)
[2024-10-27 10:51] LABS: ABS Basophils 0.1 10^3/uL (0.0-0.1); ABS Eosinophils 0.1 10^3/uL (0.0-0.5); ABS Lymphocytes 0.9 10^3/uL (1.0-4.8); ABS Monocytes 0.8 10^3/uL (0.0-0.9); ABS Neutrophils 4.5 10^3/uL (1.5-7.6); Hematocrit 32.8 % (35-45); Hemoglobin 10.8 g/dL (11.5-14.3); Lymphocyte % 13.7 %; Mean Corpuscular Hemoglobin 29.3 pg (27-33); Mean Corpuscular Volume 88.6 fL (80-97); Mean Platelet Volume 8.1 fL (7.5-11.2); Platelet Count 295 10^3/uL (150-450); Red Cell Distribution Width 14.2 % (12-17); White Blood Count 6.4 10^3/uL (3.8-11.8)
[2024-10-27 11:11] LABS: Albumin 3.4 g/dL (3.5-5.7); Albumin/Globulin Ratio 1.6 (1-3); Calcium 8.5 mg/dL (8.6-10.3); Creatinine, Serum 0.52 mg/dL (0.51-0.95); Globulin 2.1 g/dL (2-4); Magnesium 1.9 mg/dL (1.9-2.7); Phosphorus 3.8 mg/dL (2.5-5.0); Potassium 4.2 mmol/L (3.5-5.0); Total Bilirubin 0.3 mg/dL (0.2-1.0); Total Protein 5.5 g/dL (6.4-8.9); eGFR CKD-EPI 94.5 (>60)
[2024-10-27] MEDS: Calcium Carb (TUMS) 500 mg CHEW TAB PO PRN (15:08)
[2024-10-27 17:02] LABS: TSH Ultra Thyroid Stim Horm 1.66 mcIU/mL (0.34-5.60)
[2024-10-27 19:53] LABS: Adenovirus F40/41 Negative (Negative); Astrovirus Negative (Negative); Cryptosporidium species Negative (Negative); Cyclospora cayetanensis Negative (Negative); Entamoeba histolytica Negative (Negative); Enteroaggregative E.coli(EAEC) Negative (Negative); Enteropathogenic Ecoli(EPEC) Negative (Negative); Enterotoxigenic Ecoli(ETEC) Negative (Negative); Norovirus GI/GII Negative (Negative); Plesiomonas shigelloides Negative (Negative); Salmonella species Negative (Negative); Sapovirus Negative (Negative); Shiga toxin producing E. coli Negative (Negative); Shigella/Enteroinvasive E.coli Negative (Negative); Specimen Source STOOL; Vibrio cholerae Negative (Negative); Yersinia species Negative (Negative)
[2024-10-28] MEDS: Ondansetron 4 mg VIAL 2 MG/ML 2 ml VIAL IV ONE (05:48)
[2024-10-28 07:51] LABS: ABS Basophils 0.1 10^3/uL (0.0-0.1); ABS Eosinophils 0.4 10^3/uL (0.0-0.5); ABS Lymphocytes 1.4 10^3/uL (1.0-4.8); ABS Monocytes 0.7 10^3/uL (0.0-0.9); ABS Neutrophils 3.3 10^3/uL (1.5-7.6); Eosinophil % 6.3 %; Hematocrit 33.7 % (35-45); Lymphocyte % 23.6 %; Mean Corpuscular Hemoglobin 28.6 pg (27-33); Mean Corpuscular Hgb Conc 32.5 g/dL (31-36); Mean Platelet Volume 8.1 fL (7.5-11.2); Platelet Count 319 10^3/uL (150-450); Red Blood Count 3.83 10^6/uL (3.63-4.92); Red Cell Distribution Width 14.2 % (12-17); White Blood Count 5.8 10^3/uL (3.8-11.8)
[2024-10-28 08:23] LABS: Albumin 3.3 g/dL (3.5-5.7); Albumin/Globulin Ratio 1.5 (1-3); Calcium 8.8 mg/dL (8.6-10.3); Creatinine, Serum 0.47 mg/dL (0.51-0.95); Globulin 2.2 g/dL (2-4); Magnesium 1.9 mg/dL (1.9-2.7); Potassium 4.3 mmol/L (3.5-5.0); Total Bilirubin 0.4 mg/dL (0.2-1.0); Total Protein 5.5 g/dL (6.4-8.9); eGFR CKD-EPI 96.8 (>60)
[2024-10-28] MEDS ORDERED: Lorazepam PYXIS KEY PRN (09:48)
[2024-10-28] MEDS ORDERED: LORazepam 2 mg VIAL 1 ml IV PUSH ONE (09:48)
[2024-10-28 11:18] LABS: Ferritin 21.3 ng/mL (11-307)
[2024-10-28] MEDS: Ferric Gluconate IV 250 MG in NS 0.9% 250 ml 200 ML IVPB SCH (13:43)
[2024-10-28] MEDS: PAIN RELIEVING RUB (MENTHOL/SALICYLATE) 1 APPLIC TUBE TOPICAL SCH (13:49)
[2024-10-29 18:46] LABS: ABS Basophils 0.1 10^3/uL (0.0-0.1); ABS Eosinophils 0.2 10^3/uL (0.0-0.5); ABS Monocytes 0.9 10^3/uL (0.0-0.9); Eosinophil % 2.1 %; Hematocrit 30.7 % (35-45); Hemoglobin 10.1 g/dL (11.5-14.3); Lymphocyte % 10.8 %; Mean Corpuscular Hemoglobin 29.7 pg (27-33); Mean Corpuscular Volume 89.8 fL (80-97); Mean Platelet Volume 8.3 fL (7.5-11.2); Platelet Count 274 10^3/uL (150-450); Red Blood Count 3.42 10^6/uL (3.63-4.92); Red Cell Distribution Width 14.8 % (12-17); White Blood Count 9.1 10^3/uL (3.8-11.8)
[2024-10-29 19:14] LABS: Albumin 3.3 g/dL (3.5-5.7); Albumin/Globulin Ratio 1.7 (1-3); Calcium 8.3 mg/dL (8.6-10.3); Creatinine, Serum 0.59 mg/dL (0.51-0.95); Magnesium 1.9 mg/dL (1.9-2.7); Potassium 3.8 mmol/L (3.5-5.0); Total Bilirubin 0.2 mg/dL (0.2-1.0); Total Protein 5.3 g/dL (6.4-8.9); eGFR CKD-EPI 91.6 (>60)
[2024-10-29] MEDS: Haloperidol 5 mg/ml SDV IV/IM 5 MG/ML AMP IV SLOW PU ONE (20:06)
[2024-10-30] MEDS: HYDROmorphone 0.5 MG/0.5 ML SYRINGE IV SLOW PU PRN (02:51)
[2024-10-30] MEDS: Magnesium Sulfate IV 1GM/100ML 1 GM/100 ML BAG IV ONE (09:12)
[2024-10-30 15:20] LABS: Calprotectin <50.0 mcg/g
[2024-10-30 15:33] VITALS: BP 130/95
[2024-11-12 12:35] LABS: Amphetamines Screen Blood None Detected
[2024-11-12 12:37] LABS: Methamphetamines/MDMA Screen None Detected
[2024-11-12 12:41] LABS: Cocaine Metabolites Screen Bl None Detected
[2024-11-12 12:44] LABS: Phencyclidine Screen Blood None Detected
[2024-11-12 12:46] LABS: Methadone Metabolites Scrn Bl None Detected
[2024-11-12 12:48] LABS: Fentanyl/Acetyl FentanylScreen None Detected
[2024-11-12 12:51] LABS: 11-Hydroxy Delta-9 THC None Detected
[2024-11-12 12:53] LABS: Delta-9 Carboxy THC None Detected
[2024-11-12 12:56] LABS: Delta-9 THC None Detected
[2024-11-12 13:10] LABS: Dihydrocodeine/Hydrocodol-Free None Detected
[2024-11-12 13:11] LABS: Codeine-Free None Detected
[2024-11-12 13:12] LABS: Morphine-Free None Detected
[2024-11-12 13:13] LABS: Hydrocodone-Free None Detected
[2024-11-12 13:14] LABS: 6-MAM-Free None Detected
[2024-11-12 13:15] LABS: Hydromorphone-Free None Detected
[2024-11-12 13:16] LABS: Oxycodone-Free 12
[2024-11-12 13:18] LABS: Oxymorphone-Free None Detected
== END 2024-10-30 17:35 | DRG 70 ==
LOC: EDHOLD 19:34 → ED 19:34 → SUATTDRO 10-24 01:33 → MED 10-24 03:28 → SUATTDRO 10-25 12:00
PROVIDERS: ADMIT Hospitalist; ATTEND Student in an Organized Health Care Education/Training Program